=== PATIENT | female | born 1985 | race Caucasian/White ===

== ENCOUNTER 2018-05-18 14:26 | Inpatient (IN) | payer BC ==
[2018-05-18] MEDS ORDERED: Sodium Chloride 0.9% 1,000 ML IV STA (14:59)
[2018-05-18] MEDS ORDERED: Morphine 4 mg/ml ISec IVP STA (14:59)
--- NOTE | 2018-05-18 15:01 | ED PDOC ---
Arrival/HPI - General Chief Complaint: Abdominal Pain Time Seen by Provider: 05/18/18 14:35 Historian: Patient - History of Present Illness Narrative History of Present Illness (Text): 05/18/18 15:00 Patient is a 33 year old female whose past medical history includes pancreatitis , anemia, hypertension, ovarian cyst, irregular periods, and "intestinal obstruction", who presents to the emergency department complaining of upper abdominal pain, which started yesterday. Patient reports that yesterday at approximately 17:00 she started experiencing abdominal pain while walking. She also mentions having a reduced appetite because of a sensation that the food isn 't being digested. She states that in January 2017 she was hospitalized for pancreatitis and bowel obstruction. She notes that her current abdominal pain is similar to the pain she experienced from pancreatitis. Patient admits to increased belching but denies any flatulence, fevers, chills, cough, shortness of breath, chest pain, dyspnea on exertion, nausea, vomiting, diarrhea, back pain, neck pain, headache, dizziness, or any other complaint. Of note her last bowel movement was last night but notes it didn't feel complete. Of note patient denies any allergies to medications. Time/Duration: 24 hours Symptom Onset: Sudden Symptom Course: Unchanged Context: Walking Past Medical History - Provider Review Nursing Documentation Reviewed: Yes - Infectious Disease Hx of Infectious Diseases: None - Reproductive Menopause: No - Cardiac Hx Hypertension: Yes - Neurological Hx Neurological Disorder: No - Gastrointestinal Other/Comment: upper intestinal obstruction,ovarian cyst - Genitourinary/Gynecological Hx Genitourinary Disorders: No - Psychiatric Hx Anxiety: Yes Hx Substance Use: No - Anesthesia Hx Anesthesia: No Family/Social History - Physician Review Nursing Documentation Reviewed: Yes Family/Social History: No Known Family HX Smoking Status: Unknown If Ever Smoked Hx Alcohol Use: No Hx Substance Use: No Allergies/Home Meds Allergies/Adverse Reactions: Allergies No Known Allergies Allergy (Verified 05/18/18 14:49) Home Medications: Home Meds Medication Instructions Recorded Confirmed Folic Acid 0.8 mg PO DAILY 05/18/18 05/18/18 Lisinopril [Zestril] 20 mg PO DAILY 05/18/18 05/18/18 Zolpidem [Ambien] 5 mg PO PRN PRN 05/18/18 05/18/18 cloNIDine [clonidine HCl] 0.1 mg PO TID 05/18/18 05/18/18 hydrALAZINE [hydralazine 25 mg PO TID 05/18/18 05/18/18 Hydrochloride] Review of Systems - Physician Review All systems were reviewed & negative as marked: Yes - Review of Systems Constitutional: absent: Fevers Cardiovascular: absent: Chest Pain Physical Exam - Physical Exam Narrative Physical Exam (Text): 05/18/18 15:13 Constitutional: No acute distress. Head: Normocephalic. Atraumatic. Eyes: PERRL. ENT: Moist mucous membranes. Neck: Supple. Cardiovascular: Regular rate. Chest: No tenderness. Respiratory: Clear to auscultation bilaterally. GI: Soft. Nondistended. Epigastric tenderness. Back: No CVA tenderness. Musculoskeletal: No tenderness or swelling of extremities. Skin: No rash. Neurologic: Alert, no focal deficit. Vital Signs Reviewed: Yes Vital Signs Temp Pulse Resp BP Pulse Ox 05/18/18 20:08 89 179/112 H 05/18/18 16:28 88 16 152/96 H 98 05/18/18 14:35 98.1 F 92 H 18 167/107 H 99 Temperature: Afebrile Blood Pressure: Hypertensive Pulse: Regular Respiratory Rate: Normal Appearance: Positive for: Well-Appearing Mental Status: Positive for: Alert and Oriented X 3 Medical Decision Making ED Course and Treatment: 05/18/18 15:19 Impression: Patient is a 33 year old female who presents to the emergency department complaining of upper abdominal pain, which started yesterday. Differential Diagnosis included but are not limited to: Bowel obstruction vs. Pancreatitis vs. Gastritis Plan: --Abdomen and Pelvis CT with IV contrast --Labs --Morphine and Zofran --IV fluids --Urine culture --Urinalysis and HCG -- Reassess and disposition Progress Notes: 05/18/18 17:45 Discussed case with , who is aware and agrees to admit the patient under his service. 05/18/[address] with IV contrast: Creator : Frandy Heart MD IMPRESSION: Findings consistent with mild pancreatitis. No evidence of necrotizing pancreatitis. Hepatomegaly, hepatic steatosis. 05/18/18 EKG shows NSR at [address]/T wave changes. Interpreted by me. - Lab Interpretations Lab Results: 05/18/18 15:37 05/18/18 15:37 Lab Results 05/18/18 15:37: Iron 229 H, TIBC 344, % Saturation 67 H 05/18/18 15:37: Alcohol, Quantitative < 10 05/18/18 15:37: Lactate Dehydrogenase 611, Total Creatine Kinase 124, Troponin I < 0.01, Triglycerides 231 H, Cholesterol 263 H, LDL Cholesterol Direct 204 H, HDL Cholesterol 27 L 05/18/18 15:37: Sodium 142, Potassium 3.8, Chloride 100, Carbon Dioxide 28, Anion Gap 17, BUN 14, Creatinine 0.7, Est GFR ( Amer) > 60, Est GFR (Non- Af Amer) > 60, Random Glucose 123 H, Calcium 8.9, Total Bilirubin 1.1, AST 266 H , ALT 120 H, Alkaline Phosphatase 193 H, Total Protein 7.7, Albumin 4.0, Globulin 3.6, Albumin/Globulin Ratio 1.1, Lipase 5814 H 05/18/18 15:37: WBC 8.6, RBC 3.09 L, Hgb 9.9 L, Hct 30.2 L, MCV 97.7, MCH 32.0, MCHC 32.8, RDW 14.9 H, Plt Count 260, MPV 9.4, Gran % 75.7 H, Lymph % (Auto) 15.6 L, [place] % (Auto) 6.2 H, Eos % (Auto) 2.3, Baso % (Auto) 0.2, Gran # 6.48, Lymph # (Auto) 1.3, [place] # (Auto) 0.5, Eos # (Auto) 0.2, Baso # (Auto) 0.02 05/18/18 15:07: Urine Color Yellow, Urine Appearance Cloudy, Urine pH 6.5, Ur Specific [place] 1.020, Urine Protein 100 H, Urine Glucose (UA) Negative, Urine Ketones Trace H, Urine Blood Large H, Urine Nitrate Negative, Urine Bilirubin Small H, Urine Urobilinogen 1.0 H, Ur Leukocyte Esterase Trace H, Urine RBC Tntc , Urine WBC 10 - 15, Ur Epithelial Cells 10 - 12, Urine Bacteria Mod, Urine HCG , Qual Negative I have reviewed the lab results: Yes - RAD Interpretation Radiology Orders: 05/18/18 14:59 ABD & PELVIS IV CONTRAST ONLY [CT] [facility] Assistant: Radiologist - EKG Interpretation Interpreted by ED Physician: Yes Type: 12 lead EKG - Medication Orders Current Medication Orders: Clonidine HCl (Catapres) 0.1 mg PO TID [facility] Hydralazine HCl (Apresoline) 25 mg PO TID [facility] Lactated Ringer's (Lactated Ringer's) 1,000 mls @ 150 mls/hr IV .Q6H40M [facility] Lisinopril (Zestril) 20 mg PO DAILY [facility] Metoprolol Tartrate (Lopressor) 25 mg PO BID [facility] Morphine Sulfate (Morphine) 2 mg IVP Q4H PRN PRN Reason: Pain, severe (8-10) Last Admin: 05/18/18 20:11 Dose: 2 mg MAR Pain Assessment Document 05/18/18 20:11 (Rec: 05/18/18 20:11 [place] [id number]) Pain Reassessment Is this a pain reassessment? No Sleep Is patient sleeping during reassessment? No Presence of Pain Presence of Pain Yes IVP Administration Document 05/18/18 20:11 (Rec: 05/18/18 20:11 [place] [id number]) Charges for Administration # of IVP Administrations 1 Non-Formulary Medication (Folic Acid [Folic Acid]) 0.8 mg PO DAILY [facility] Pantoprazole Sodium (Protonix Ec Tab) 40 mg PO 0600 [facility] Discontinued Medications Clonidine HCl (Catapres) 0.1 mg PO STAT STA Stop: 05/18/18 19:35 Last Admin: 05/18/18 20:08 Dose: 0.1 mg MAR Pulse and Blood Pressure Document 05/18/18 20:08 (Rec: 05/18/18 20:08 [place] [id number]) Pulse Pulse Rate (60-90) 89 Blood Pressure Blood Pressure (100/60-150/90) 179/112 Fentanyl (Fentanyl) 100 mcg IVP ONCE ONE Stop: 05/18/18 16:11 Last Admin: 05/18/18 16:24 Dose: 100 mcg MAR Pain Assessment Document 05/18/18 16:24 ANGELICA (Rec: 05/18/18 16:24 [id number] Pain Reassessment Is this a pain reassessment? Yes Presence of Pain Presence of Pain Yes Location Upper or Lower Upper Pain Location Body Site Abdomen Description Description Sharp Intensity of Pain at present 10 IVP Administration Document 05/18/18 16:24 ANGELICA (Rec: 05/18/18 16:24 [facility]) Charges for Administration # of IVP Administrations 1 Fentanyl (Fentanyl) 100 mcg IVP ONCE ONE Stop: 05/18/18 17:51 Last Admin: 05/18/18 18:14 Dose: 100 mcg MAR Pain Assessment Document 05/18/18 18:14 [place] (Rec: 05/18/18 18:14 [id number] Pain Reassessment Is this a pain reassessment? Yes Sleep Is patient sleeping during reassessment? No Presence of Pain Presence of Pain Yes Pain Scale Used Pain Scale Used Numeric Description Description Sharp Intensity of Pain at present 10 Pain Behavior Moaning Facial Grimacing IVP Administration Document 05/18/18 18:14 [place] (Rec: 05/18/18 18:14 [id number]) Charges for Administration # of IVP Administrations 1 Sodium Chloride (Sodium Chloride 0.9%) 1,000 mls @ 999 mls/hr IV .Q1H1M STA Stop: 05/18/18 15:59 Last Admin: 05/18/18 15:24 Dose: 999 mls/hr eMAR Start Stop Document 05/18/18 15:24 ANGELICA (Rec: 05/18/18 15:24 [facility]) Intravenous Solution Start Date 05/18/18 Start Time 15:24 End Date 05/18/18 End time 16:24 Total Infusion Time 60 Morphine Sulfate (Morphine) 4 mg IVP STAT STA Stop: 05/18/18 15:00 Last Admin: 05/18/18 15:24 Dose: Not Given Non-Admin Reason: Patient Refused Ondansetron HCl (Zofran Inj) 8 mg IVP STAT STA Stop: 05/18/18 15:00 Last Admin: 05/18/18 15:24 Dose: 8 mg IVP Administration Document 05/18/18 15:24 ANGELICA (Rec: 05/18/18 15:24 [facility]) Charges for Administration # of IVP Administrations 1 - Scribe Statement The provider has reviewed the documentation as recorded by the Scribjoaquin Masters Provider Scribe Attestation: All medical record entries made by the Scribe were at my direction and personally dictated by me. I have reviewed the chart and agree that the record accurately reflects my personal performance of the history, physical exam, medical decision making, and the department course for this patient. I have also personally directed, reviewed, and agree with the discharge instructions and disposition. Disposition/Present on Arrival - Present on Arrival Any Indicators Present on Arrival: No History of DVT/PE: No History of Uncontrolled Diabetes: No Urinary Catheter: No History of Decub. Ulcer: No History Surgical Site Infection Following: None - Disposition Have Diagnosis and Disposition been Completed?: Yes Diagnosis: Acute pancreatitis Disposition: HOSPITALIZED Disposition Time: 17:30 Patient Plan: Admission Condition: GUARDED
[2018-05-18 15:19] LABS: PH,URINE 6.5 (4.7-8.0); URINE BILIRUBIN SMALL (NEGATIVE); URINE BLOOD LARGE (NEGATIVE); URINE GLUCOSE (UA) NEGATIVE (NEGATIVE); URINE LEUKOCYTE ESTERASE TRACE Leu/uL (NEGATIVE); URINE PROTEIN 100 mg/dL (<30 mg/dL)
[2018-05-18 15:26] LABS: HCG,QUALITATIVE URINE NEGATIVE (NEGATIVE); URINE APPEARANCE CLOUDY (CLEAR); URINE COLOR YELLOW (YELLOW)
[2018-05-18 15:38] LABS: URINE BACTERIA MOD (NEG); URINE RBC TNTC /hpf (0-2)
[2018-05-18 15:43] LABS: BASO # 0.02 K/mm3 (0.0-2.0); BASO % 0.2 % (0.0-3.0); EOS # 0.2 (0.0-0.7); EOS % 2.3 % (1.5-5.0); GRAN # 6.48 (1.4-6.5); GRAN % 75.7 % (50.0-68.0); HEMOGLOBIN 9.9 g/dL (12.0-16.0); LYMPH # 1.3 (1.2-3.4); LYMPH % 15.6 % (22.0-35.0); MEAN CELL VOLUME 97.7 fl (80.0-105.0); MEAN CORPUSCULAR HGB CONC 32.8 g/dl (31.0-37.0); MEAN PLATELET VOLUME 9.4 fl (7.0-11.0); MONO # 0.5 (0.1-0.6); MONO % 6.2 % (1.0-6.0); RBC 3.09 10^6/uL (3.5-6.1); RED CELL DISTRIBUTION WIDTH 14.9 % (11.5-14.5); WHITE BLOOD COUNT 8.6 10^3/ul (4.5-11.0)
[2018-05-18 15:53] LABS: ALB/GLOB RATIO 1.1 (1.1-1.8); ALT/SGPT 120 U/L (7-56); AST/SGOT 266 U/L (14-36); BLOOD UREA NITROGEN 14 mg/dL (7-21); CALCIUM 8.9 mg/dL (8.4-10.5); GFR AFRICAN-AMERICAN > 60; GFR NON-AFRICAN AMERICAN > 60
[2018-05-18] MEDS ORDERED: Iohexol 350 MG/100 ML VIAL ONE (16:14)
[2018-05-18 16:33] LABS: LIPASE 5814 U/L (23-300)
--- NOTE | 2018-05-18 17:27 | CT ---
PROCEDURE: CT Abdomen and Pelvis with contrast HISTORY: Abdominal pain and nausea. History of obstruction. Negative test (concurrent with this examination). COMPARISON: None. TECHNIQUE: Contrast dose: 96 cc Omnipaque 350. Radiation dose: Total exam DLP = 1154.27 mGy-cm. This CT exam was performed using one or more of the following dose reduction techniques: Automated exposure control, adjustment of the mA and/or kV according to patient size, and/or use of iterative reconstruction technique. FINDINGS: LOWER THORAX: Unremarkable. LIVER: Hepatomegaly, hepatic steatosis without focal liver abnormality. GALLBLADDER AND BILE DUCTS: Unremarkable. PANCREAS: Haziness about the head of the pancreas and peripancreatic inflammatory changes consistent with acute pancreatitis. No evidence of necrotizing pancreatitis. Inflammatory changes extend to root of the mesenteries, proximal loops of small bowel and lesser sac. SPLEEN: Unremarkable. ADRENALS: Unremarkable. No mass. KIDNEYS AND URETERS: Unremarkable. No hydronephrosis. No solid mass. VASCULATURE: Unremarkable. No aortic aneurysm. BOWEL: Unremarkable. No obstruction. No gross mural thickening. APPENDIX: Normal appendix. PERITONEUM: Unremarkable. No free fluid. No free air. LYMPH NODES: Unremarkable. No enlarged lymph nodes. BLADDER: Unremarkable. REPRODUCTIVE: Unremarkable. BONES: No acute fracture. OTHER FINDINGS: None. IMPRESSION: Findings consistent with mild pancreatitis. No evidence of necrotizing pancreatitis. Hepatomegaly, hepatic steatosis.
[2018-05-18 18:34] LABS: BARBITURATES, UR NEGATIVE (NEGATIVE); BENZODIAZEPINES, UR POSITIVE (NEGATIVE); OPIATES, UR NEGATIVE (NEGATIVE); PHENCYCLIDINE, UR NEGATIVE (NEGATIVE)
[2018-05-18 19:17] LABS: HDL CHOLESTEROL 27 mg/dL (29-60)
[2018-05-18 19:18] LABS: IRON 229 ug/dL (45-180)
[2018-05-18 19:28] LABS: % IRON SATURATION 67 % (20-55); LDL CHOLESTEROL 204 mg/dL (0-129); TOTAL IRON BINDING CAPACITY 344 ug/dL (265-497)
[2018-05-18 19:31] LABS: TROPONIN I < 0.01 ng/mL
--- NOTE | 2018-05-18 19:32 | CP.PCM.HP ---
<Saeed Jerry - Last Filed: 05/18/18 21:03> History of Present Illness - History of Present Illness History of Present Illness: Saeed Hsuguis PGY2 IM H&P Note for Hospitalist Service Ms. Jonas is a 33-year-old female the past medical history of one episode of pancreatitis (2012) secondary to alcohol use, and iron deficiency anemia who presents to ED with epigastric and right upper quadrant pain that began yesterday and is described as sharp in nature. Patient denies nausea/vomiting or fever/chills, changes in bowel habits, hematochezia or hematemesis. Patient states that she did not eat any new foods yesterday and admits to having only 1 alcoholic drink yesterday which she states was not large. Patient also denies chest pain, headaches, shortness of breath, changes in vision, weakness, dizziness, or leg pain. 12 point ROS was reviewed and is otherwise unremarkable. PMH: As above PSH: Unremarkable Meds: Lisinopril 20 mg daily, metoprolol 25 mg twice daily, clonidine 0.1 mg 3 times daily, hydralazine 25 mg 3 times daily, folic acid and iron supplements Allergies: No known drug allergies NKDA SHX: Denies excessive alcohol use, tobacco use or drug use FHx: Mom (recent cholecystectomy with complications), dad and other members of family have heart disease Present on Admission - Present on Admission Any Indicators Present on Admission: No Review of Systems - Review of Systems All systems: reviewed and no additional remarkable complaints except (as per HPI ) Past Patient History - Infectious Disease Hx of Infectious Diseases: None - Past Medical History & Family History Past Medical History?: Yes Past Family History: Reviewed and not pertinent - Past Social History Smoking Status: Unknown If Ever Smoked Alcohol: Occasional Drugs: Denies - CARDIAC Hx Hypertension: Yes - PULMONARY Hx Respiratory Disorders: No - NEUROLOGICAL Hx Neurological Disorder: No - HEENT Hx HEENT Problems: No - RENAL Hx Chronic Kidney Disease: No - ENDOCRINE/METABOLIC Hx Endocrine Disorders: No - HEMATOLOGICAL/ONCOLOGICAL Hx Anemia: Yes - INTEGUMENTARY Hx Dermatological Problems: No - MUSCULOSKELETAL/RHEUMATOLOGICAL Hx Musculoskeletal Disorders: No - GASTROINTESTINAL Hx Gastrointestinal Disorders: Yes Hx Pancreatitis: Yes Other/Comment: upper intestinal obstruction,ovarian cyst - GENITOURINARY/GYNECOLOGICAL Hx Genitourinary Disorders: No Other/Comment: ovarian cyst, menorrhagia - PSYCHIATRIC Hx Anxiety: Yes Hx Substance Use: No - SURGICAL HISTORY Hx Surgeries: No - ANESTHESIA Hx Anesthesia: No Meds Allergies/Adverse Reactions: Allergies Allergy/AdvReac Type Severity Reaction Status Date / Time No Known Allergies Allergy Verified 05/18/18 14:49 Physical Exam - Constitutional Appears: Well, Non-toxic, No Acute Distress - Head Exam Head Exam: NORMAL INSPECTION - Eye Exam Eye Exam: EOMI, Normal appearance - ENT Exam ENT Exam: Mucous Membranes Moist, Normal Exam - Neck Exam Neck exam: Positive for: Normal Inspection - Respiratory Exam Respiratory Exam: Clear to Auscultation Bilateral, NORMAL BREATHING PATTERN. absent: Rales, Rhonchi, Wheezes - Cardiovascular Exam Cardiovascular Exam: RRR, +S1, +S2 - GI/Abdominal Exam GI & Abdominal Exam: Normal Bowel Sounds, Soft, Tenderness (epigastric/RUQ). absent: Distended, Guarding, Rigid - Extremities Exam Extremities exam: Positive for: normal inspection - Back Exam Back exam: NORMAL INSPECTION. absent: CVA tenderness (L), CVA tenderness (R), tenderness - Neurological Exam Neurological exam: Alert, Oriented x3 - Psychiatric Exam Psychiatric exam: Anxious - Skin Skin Exam: Normal Color, Warm Results - Vital Signs Recent Vital Signs: Last Vital Signs Temp 98.1 F 05/18/18 14:35 Pulse 88 05/18/18 16:28 Resp 16 05/18/18 16:28 BP 152/96 H 05/18/18 16:28 Pulse Ox 98 05/18/18 16:28 - Labs Result Diagrams: 05/18/18 15:37 05/18/18 15:37 Labs: Laboratory Results - last 24 hr 05/18/18 17:57 Urine Opiates Screen Negative Urine Methadone Screen Negative Ur Barbiturates Screen Negative Ur Phencyclidine Scrn Negative Ur Amphetamines Screen Negative U Benzodiazepines Scrn Positive H U Oth Cocaine Metabols Negative U Cannabinoids Screen Negative Assessment & Plan - Assessment and Plan (Free Text) Assessment: 33 yo F with PMH of one episode of pancreatitis (2012) secondary to alcohol use , and iron deficiency anemia who presents to ED with epigastric and right upper quadrant pain, found to have pancreatitis (abdominal pain, findings on imaging and elevated lipase) and transaminitis. Plan: 1. Abdominal Pain 2/2 Pancreatitis - Abd US ordered to r/o gallstones as etiology - Lipid panel ordered to r/o triglycerides as etiology - ETOH level ordered to r/o ETOH as etiology - IVF w/ LR @ 150 - morphine prn pain - GI consulted given 2nd episode in young patient, recs appreciated - NPO diet except meds - troponin ordered to r/o MO in patient w/ +fhx, obese and htn 2. Hx HTN - home meds restarted - pharmacy not available at this time; please contact to [employer] on list - monitor VS - EKG ordered, f/u 3. Hx anemia - likely due to menorrhagia and recent menses - normocytic in nature - cont to monitor H/H - iron panel and w/u ordered - monitor for signs 4. Transaminitis - CT showed fatty liver - Abd US ordered - hepatitis panel ordered - avoid hepatotoxic meds 5. ppx - PTX - ambulatory Case was reviewed and discussed with attending, Dr. Jm Jerry PGY1 <Arlene Oneal - Last Filed: 05/19/18 08:10> Results - Vital Signs Recent Vital Signs: Last Vital Signs Temp 98.1 F 05/18/18 14:35 Pulse 92 H 05/19/18 07:00 Resp 18 05/18/18 22:52 BP 166/120 H 05/19/18 07:00 Pulse Ox 98 05/18/18 16:28 - Labs Result Diagrams: 05/19/18 06:00 05/19/18 07:05 Labs: Laboratory Results - last 24 hr 05/18/18 05/19/18 05/19/18 17:57 00:40 06:00 WBC RBC Hgb Hct MCV MCH MCHC RDW Plt Count MPV Gran % Lymph % (Auto) [place] % (Auto) Eos % (Auto) Baso % (Auto) Gran # Lymph # (Auto) [place] # (Auto) Eos # (Auto) Baso # (Auto) Sodium Potassium Chloride Carbon Dioxide Anion Gap BUN Creatinine Est GFR ( Amer) Est GFR (Non-Af Amer) Random Glucose Calcium Total Bilirubin AST ALT Alkaline Phosphatase Lactate Dehydrogenase 500 535 Total Creatine Kinase 94 100 Troponin I < 0.01 < 0.01 Total Protein Albumin Globulin Albumin/Globulin Ratio Urine Opiates Screen Negative Urine Methadone Screen Negative Ur Barbiturates Screen Negative Ur Phencyclidine Scrn Negative Ur Amphetamines Screen Negative U Benzodiazepines Scrn Positive H U Oth Cocaine Metabols Negative U Cannabinoids Screen Negative 05/19/18 05/19/18 06:00 07:05 WBC 7.0 RBC 2.91 L Hgb 9.4 L Hct 28.4 L MCV 97.6 MCH 32.3 MCHC 33.1 RDW 14.9 H Plt Count 243 MPV 9.7 Gran % 70.6 H Lymph % (Auto) 18.7 L [place] % (Auto) 6.8 H Eos % (Auto) 3.6 Baso % (Auto) 0.3 Gran # 4.95 Lymph # (Auto) 1.3 [place] # (Auto) 0.5 Eos # (Auto) 0.3 Baso # (Auto) 0.02 Sodium 142 Potassium 3.8 Chloride 101 Carbon Dioxide 28 Anion Gap 16 BUN 8 Creatinine 0.6 L Est GFR ( Amer) > 60 Est GFR (Non-Af Amer) > 60 Random Glucose 114 H Calcium 8.3 L Total Bilirubin 1.0 AST 194 H D ALT 104 H Alkaline Phosphatase 169 H Lactate Dehydrogenase Total Creatine Kinase Troponin I Total Protein 7.4 Albumin 3.6 Globulin 3.8 Albumin/Globulin Ratio 1.0 L Urine Opiates Screen Urine Methadone Screen Ur Barbiturates Screen Ur Phencyclidine Scrn Ur Amphetamines Screen U Benzodiazepines Scrn U Oth Cocaine Metabols U Cannabinoids Screen Attending/Attestation - Attestation I have personally seen and examined this patient.: Yes I have fully participated in the care of the patient.: Yes I have reviewed all pertinent clinical information: Yes Notes (Text): 05/18/18 33 year old female with past medical history of alcohol abuse, anemia and pancreatitis presents with complaint of abdominal pain secondary to acute pancreatitis. Elevated lipase and LFTs on labs. CT abd/pelvis shows mild pancreatitis without gallstones. Will keep NPO with IVF and analgesics. Lipid panel and hepatitis panel is ordered. Will obtain urine drug screen and alcohol level. Patient states she cut down on her ETOH intake since her last pancreatitis episode and had only one drink yesterday. She was counselled on alcohol abstinence. US ultrasound is ordered. GI evaluation is requested. Serial cardiac enzymes were also ordered. EKG is pending. Arlene Oneal MD Hospitalist.
[2018-05-18] MEDS: Morphine 2 mg/ml ISec IVP PRN (20:11)
[2018-05-18] MEDS ORDERED: Morphine 2 mg/ml ISec IVP STA (23:03)
[2018-05-19 00:34] VITALS: BMI 32.1
[2018-05-19 01:18] LABS: TROPONIN I < 0.01 ng/mL
[2018-05-19] MEDS: Lactated Ringer's 1,000 ML IV SCH ×5 (02:28→22:18)
[2018-05-19] MEDS: Morphine 2 mg/ml ISec IVP PRN ×6 (03:33→23:34)
[2018-05-19] MEDS: Pantoprazole 40 mg EC Tab PO SCH (06:07)
[2018-05-19 06:46] LABS: TROPONIN I < 0.01 ng/mL
[2018-05-19] MEDS ORDERED: Sodium Chloride 0.9% 1,000 ML IV SCH ×2 (07:15→09:25)
[2018-05-19 07:26] LABS: BASO # 0.02 K/mm3 (0.0-2.0); BASO % 0.3 % (0.0-3.0); EOS # 0.3 (0.0-0.7); EOS % 3.6 % (1.5-5.0); GRAN # 4.95 (1.4-6.5); GRAN % 70.6 % (50.0-68.0); HEMOGLOBIN 9.4 g/dL (12.0-16.0); LYMPH # 1.3 (1.2-3.4); LYMPH % 18.7 % (22.0-35.0); MEAN CELL VOLUME 97.6 fl (80.0-105.0); MEAN CORPUSCULAR HEMOGLOBIN 32.3 pg (25.0-35.0); MEAN CORPUSCULAR HGB CONC 33.1 g/dl (31.0-37.0); MEAN PLATELET VOLUME 9.7 fl (7.0-11.0); MONO # 0.5 (0.1-0.6); MONO % 6.8 % (1.0-6.0); RBC 2.91 10^6/uL (3.5-6.1); RED CELL DISTRIBUTION WIDTH 14.9 % (11.5-14.5)
[2018-05-19 07:37] LABS: ALBUMIN 3.6 g/dL (3.0-4.8); ALT/SGPT 104 U/L (7-56); AST/SGOT 194 U/L (14-36); BLOOD UREA NITROGEN 8 mg/dL (7-21); CALCIUM 8.3 mg/dL (8.4-10.5); GFR AFRICAN-AMERICAN > 60; GFR NON-AFRICAN AMERICAN > 60
--- NOTE | 2018-05-19 09:34 | US ---
HISTORY: r/o cholelithiasis COMPARISON: None. TECHNIQUE: Sonographic evaluation of the abdomen. FINDINGS: LIVER: Measures 25.2 cm. There is diffuse increased echogenicity of the liver parenchyma. No mass. No intrahepatic bile duct dilatation. GALLBLADDER: There are no gallstones, wall thickening or pericholecystic fluid. The sonographic Roberts's sign is negative. COMMON BILE DUCT: Measures 6.0 mm. No stones. Mild dilatation. PANCREAS: Not well-visualized. RIGHT KIDNEY: Measures 13.0cm. Normal echogenicity. No calculus, mass, or hydronephrosis. LEFT KIDNEY: Measures 13.3cm. Normal echogenicity. No calculus, mass, or hydronephrosis. SPLEEN: Enlarged and measures 14.0 cm. AORTA: No aneurysmal dilatation. IVC: Unremarkable. OTHER FINDINGS: None. IMPRESSION: No cholelithiasis. Mild diffuse dilatation of common bile duct without evidence for choledocholithiasis. Moderate hepatomegaly. Diffuse increased echogenicity in the liver may reflect hepatic steatosis however parenchymal infectious/ inflammatory etiologies cannot be entirely excluded. Clinical and laboratory correlation is advised. Mild splenomegaly.
[2018-05-19] MEDS ORDERED: FOLIC ACID 0.8 MG PO SCH (10:00)
[2018-05-19] MEDS ORDERED: Lactated Ringer's 1,000 ML IV SCH (10:00)
[2018-05-19 11:37] LABS: HEPATITIS B SURFACE AG Negative (NEGATIVE)
[2018-05-19 11:40] LABS: FERRITIN 73.7 ng/mL
[2018-05-19 11:42] LABS: HEPATITIS A IGM NEGATIVE (NEGATIVE); HEPATITIS B CORE AB NEGATIVE (NEGATIVE)
[2018-05-19 11:54] LABS: HEPATITIS C ANTIBODY NEGATIVE (NEGATIVE)
[2018-05-19 12:10] LABS: FOLATE > 20.0 ng/mL
--- NOTE | 2018-05-19 12:50 | CARD ---
APPROVED REPORT EKG Measurement Heart [id number] DC [id number] <Conclusion> Normal sinus rhythm Normal ECG
--- NOTE | 2018-05-19 14:07 | CP.PCM.CON ---
<Medardo Alex - Last Filed: 05/19/18 15:43> History of Present Illness - History of Present Illness History of Present Illness: PGY-4 GI Fellow Consult Note Mrs. Jonas is a 33 yo BF with h/o pancreatitis (attributed to EtOH, previously worked up in 2013 @ [facility]) presenting with abdominal pain. She states in the last day or two she noticed abrupt onset sharp, RUQ/epigatric pain that would radiated to her sides. She denies any N/V, F/C, hematemesis, melena nor hematochezia. States she had one larger [employer] day that day the symptoms started. Otherwise she states that she does not drink hardly ever and does not do any drugs. 12 point ROS negative other than stated above MHx Pancreatitis as desribed above SurgHx: None Meds Lisinopril Metoprolol Clonidine Hydralazine Folic Chris, Fe Supp FamHx Mother with GB disease and heart problems SocHx: Rarely drinks EtOH, denies tob and illicits All: NKDA Past Patient History - Infectious Disease Hx of Infectious Diseases: None - Past Medical History & Family History Past Medical History?: Yes Past Family History: Reviewed and not pertinent - Past Social History Smoking Status: Former Smoker - CARDIAC Hx Cardiac Disorders: Yes Hx Hypertension: Yes - PULMONARY Hx Respiratory Disorders: No - NEUROLOGICAL Hx Neurological Disorder: No - HEENT Hx HEENT Problems: No - RENAL Hx Chronic Kidney Disease: No - ENDOCRINE/METABOLIC Hx Endocrine Disorders: No - HEMATOLOGICAL/ONCOLOGICAL Hx Blood Disorders: Yes Hx Anemia: Yes - INTEGUMENTARY Hx Dermatological Problems: No - MUSCULOSKELETAL/RHEUMATOLOGICAL Hx Musculoskeletal Disorders: No Hx Falls: No - GASTROINTESTINAL Hx Pancreatitis: Yes Other/Comment: upper intestinal obstruction,ovarian cyst - GENITOURINARY/GYNECOLOGICAL Hx Genitourinary Disorders: No - PSYCHIATRIC Hx Anxiety: Yes Hx Substance Use: No - SURGICAL HISTORY Hx Surgeries: No - ANESTHESIA Hx Anesthesia: No Meds Home Medications: Home Medication List Medication Instructions Recorded Confirmed Type ALPRAZolam [Xanax] 1 mg PO BID #8 tab 05/19/18 Rx Allergies/Adverse Reactions: Allergies Allergy/AdvReac Type Severity Reaction Status Date / Time No Known Allergies Allergy Verified 05/18/18 14:49 - Medications Medications: Current Medications Clonidine HCl (Catapres) 0.1 mg PO TID [facility] Last Admin: 05/19/18 13:21 Dose: 0.1 mg Folic Acid (Folic Acid) 1 mg PO DAILY [facility] Last Admin: 05/19/18 09:35 Dose: 1 mg Hydralazine HCl (Apresoline) 25 mg PO TID [facility] Last Admin: 05/19/18 13:21 Dose: 25 mg Hydralazine HCl (Apresoline) 25 mg PO BID PRN PRN Reason: Systolic Blood Pressure Lactated Ringer's (Lactated Ringer's) 1,000 mls @ 125 mls/hr IV .Q8H [facility] Lisinopril (Zestril) 20 mg PO DAILY [facility] Last Admin: 05/19/18 10:46 Dose: 20 mg Metoprolol Tartrate (Lopressor) 50 mg PO BID [facility] Morphine Sulfate (Morphine) 2 mg IVP Q4H PRN PRN Reason: Pain, severe (8-10) Last Admin: 05/19/18 11:46 Dose: 2 mg Pantoprazole Sodium (Protonix Ec Tab) 40 mg PO 0600 [facility] Last Admin: 05/19/18 06:07 Dose: 40 mg Physical Exam - Constitutional Appears: Non-toxic, Other (Uncomfortable, Anxious, Obese) - Head Exam Head Exam: ATRAUMATIC, NORMOCEPHALIC - Eye Exam Eye Exam: EOMI. absent: Conjunctival injection, Scleral icterus - ENT Exam ENT Exam: Mucous Membranes Moist, Normal External Ear Exam - Respiratory Exam Respiratory Exam: Clear to Auscultation Bilateral. absent: Accessory Muscle Use , Prolonged Expiratory Phase, Respiratory Distress - Cardiovascular Exam Cardiovascular Exam: REGULAR RHYTHM. absent: Systolic Murmur - GI/Abdominal Exam GI & Abdominal Exam: Normal Bowel Sounds, Soft, Tenderness (ttp in epigastrum w/ o guarding). absent: Bruit, Diminished Bowel Sounds, Distended, Firm, Guarding , Hernia, Hyperactive Bowel Sounds, Hypoactive Bowel Sounds, Mass - Rectal Exam Rectal Exam: Deferred - Neurological Exam Neurological exam: Alert, CN II-XII Intact - Psychiatric Exam Psychiatric exam: Anxious, Normal Affect - Skin Skin Exam: Intact, Warm Results - Vital Signs Recent Vital Signs: Last Vital Signs Temp 98.1 F 05/19/18 08:11 Pulse 81 05/19/18 13:21 Resp 19 05/19/18 08:11 BP 161/114 H 05/19/18 13:21 Pulse Ox 97 05/19/18 08:11 - Labs Result Diagrams: 05/19/18 06:00 05/19/18 07:05 Labs: Laboratory Results - last 24 hr 05/18/18 05/18/18 05/18/18 17:57 19:42 19:42 WBC RBC Hgb Hct MCV MCH MCHC RDW Plt Count MPV Gran % Lymph % (Auto) [place] % (Auto) Eos % (Auto) Baso % (Auto) Gran # Lymph # (Auto) [place] # (Auto) Eos # (Auto) Baso # (Auto) Sodium Potassium Chloride Carbon Dioxide Anion Gap BUN Creatinine Est GFR ( Amer) Est GFR (Non-Af Amer) Random Glucose Calcium Ferritin 73.7 Total Bilirubin AST ALT Alkaline Phosphatase Lactate Dehydrogenase Total Creatine Kinase Troponin I Total Protein Albumin Globulin Albumin/Globulin Ratio Vitamin B12 400 Folate > 20.0 Urine Opiates Screen Negative Urine Methadone Screen Negative Ur Barbiturates Screen Negative Ur Phencyclidine Scrn Negative Ur Amphetamines Screen Negative U Benzodiazepines Scrn Positive H U Oth Cocaine Metabols Negative U Cannabinoids Screen Negative Hepatitis A IgM Ab Negative Hep Bs Antigen Negative Hep B Core IgM Ab Negative Hepatitis C Antibody Negative 05/19/18 05/19/18 05/19/18 00:40 06:00 06:00 WBC 7.0 RBC 2.91 L Hgb 9.4 L Hct 28.4 L MCV 97.6 MCH 32.3 MCHC 33.1 RDW 14.9 H Plt Count 243 MPV 9.7 Gran % 70.6 H Lymph % (Auto) 18.7 L [place] % (Auto) 6.8 H Eos % (Auto) 3.6 Baso % (Auto) 0.3 Gran # 4.95 Lymph # (Auto) 1.3 [place] # (Auto) 0.5 Eos # (Auto) 0.3 Baso # (Auto) 0.02 Sodium Potassium Chloride Carbon Dioxide Anion Gap BUN Creatinine Est GFR ( Amer) Est GFR (Non-Af Amer) Random Glucose Calcium Ferritin Total Bilirubin AST ALT Alkaline Phosphatase Lactate Dehydrogenase 500 535 Total Creatine Kinase 94 100 Troponin I < 0.01 < 0.01 Total Protein Albumin Globulin Albumin/Globulin Ratio Vitamin B12 Folate Urine Opiates Screen Urine Methadone Screen Ur Barbiturates Screen Ur Phencyclidine Scrn Ur Amphetamines Screen U Benzodiazepines Scrn U Oth Cocaine Metabols U Cannabinoids Screen Hepatitis A IgM Ab Hep Bs Antigen Hep B Core IgM Ab Hepatitis C Antibody 05/19/18 07:05 WBC RBC Hgb Hct MCV MCH MCHC RDW Plt Count MPV Gran % Lymph % (Auto) [place] % (Auto) Eos % (Auto) Baso % (Auto) Gran # Lymph # (Auto) [place] # (Auto) Eos # (Auto) Baso # (Auto) Sodium 142 Potassium 3.8 Chloride 101 Carbon Dioxide 28 Anion Gap 16 BUN 8 Creatinine 0.6 L Est GFR ( Amer) > 60 Est GFR (Non-Af Amer) > 60 Random Glucose 114 H Calcium 8.3 L Ferritin Total Bilirubin 1.0 AST 194 H D ALT 104 H Alkaline Phosphatase 169 H Lactate Dehydrogenase Total Creatine Kinase Troponin I Total Protein 7.4 Albumin 3.6 Globulin 3.8 Albumin/Globulin Ratio 1.0 L Vitamin B12 Folate Urine Opiates Screen Urine Methadone Screen Ur Barbiturates Screen Ur Phencyclidine Scrn Ur Amphetamines Screen U Benzodiazepines Scrn U Oth Cocaine Metabols U Cannabinoids Screen Hepatitis A IgM Ab Hep Bs Antigen Hep B Core IgM Ab Hepatitis C Antibody Assessment & Plan - Assessment and Plan (Free Text) Assessment: Acute Pancreatitis: 3/3 criteria with typical symptoms, lipase >3x ULN and radiographic imaging. Trigger likely related to EtOH as recent consumption with onset of symptoms. Though pt denied large consumption, some patients, especially females, can be sensitive to EtOH that could produced pancreatitis and hepatitis. Furthermore, patient can always be under reporting consumption habits (she reported drinking just prior to admission to medicine team, but told this author that she drank 3 weeks ago and none since when her mother was present). TGs not significantly elevate to be TG-induced. Acute Hepatitis: Likely EtOH induced given pattern AST/ALT and as well as correlating radiographic studies and concomitant pancreatitis. Plan: NPO Agressive IVF with Lactated Ringers Pain Control Agree with ruling out Viral Hep for elevated transaminases Counseled patient on complete EtOH cessation - Date & Time Date: 05/19/18 Time: 11:00 <James Renee V - Last Filed: 05/19/18 23:13> Meds - Medications Medications: Current Medications Alprazolam (Xanax) 1 mg PO BID PRN; Protocol PRN Reason: Anxiety Last Admin: 05/19/18 22:19 Dose: 1 mg Clonidine HCl (Catapres) 0.1 mg PO TID [facility] Last Admin: 05/19/18 17:44 Dose: 0.1 mg Folic Acid (Folic Acid) 1 mg PO DAILY [facility] Last Admin: 05/19/18 09:35 Dose: 1 mg Hydralazine HCl (Apresoline) 25 mg PO TID [facility] Last Admin: 05/19/18 17:44 Dose: 25 mg Hydralazine HCl (Apresoline) 25 mg PO BID PRN PRN Reason: Systolic Blood Pressure Lactated Ringer's (Lactated Ringer's) 1,000 mls @ 125 mls/hr IV .Q8H [facility] Last Admin: 05/19/18 22:18 Dose: 125 mls/hr Lisinopril (Zestril) 20 mg PO DAILY [facility] Last Admin: 05/19/18 10:46 Dose: 20 mg Metoprolol Tartrate (Lopressor) 50 mg PO BID [facility] Last Admin: 05/19/18 17:44 Dose: 50 mg Morphine Sulfate (Morphine) 2 mg IVP Q4H PRN PRN Reason: Pain, severe (8-10) Last Admin: 05/19/18 20:04 Dose: 2 mg Pantoprazole Sodium (Protonix Ec Tab) 40 mg PO 0600 [facility] Last Admin: 05/19/18 06:07 Dose: 40 mg Zolpidem Tartrate (Ambien) 5 mg PO HS PRN; Protocol PRN Reason: Insomnia Last Admin: 05/19/18 21:44 Dose: 5 mg Results - Vital Signs Recent Vital Signs: Last Vital Signs Temp 99.6 F 05/19/18 18:00 Pulse 84 05/19/18 18:00 Resp 19 05/19/18 18:00 BP 147/100 H 05/19/18 18:00 Pulse Ox 96 05/19/18 18:00 - Labs Result Diagrams: 05/19/18 06:00 05/19/18 07:05 Labs: Laboratory Results - last 24 hr 05/18/18 05/18/18 05/19/18 19:42 19:42 00:40 WBC RBC Hgb Hct MCV MCH MCHC RDW Plt Count MPV Gran % Lymph % (Auto) [place] % (Auto) Eos % (Auto) Baso % (Auto) Gran # Lymph # (Auto) [place] # (Auto) Eos # (Auto) Baso # (Auto) Sodium Potassium Chloride Carbon Dioxide Anion Gap BUN Creatinine Est GFR ( Amer) Est GFR (Non-Af Amer) Random Glucose Calcium Ferritin 73.7 Total Bilirubin AST ALT Alkaline Phosphatase Lactate Dehydrogenase 500 Total Creatine Kinase 94 Troponin I < 0.01 Total Protein Albumin Globulin Albumin/Globulin Ratio Vitamin B12 400 Folate > 20.0 Hepatitis A IgM Ab Negative Hep Bs Antigen Negative Hep B Core IgM Ab Negative Hepatitis C Antibody Negative 05/19/18 05/19/18 05/19/18 06:00 06:00 07:05 WBC 7.0 RBC 2.91 L Hgb 9.4 L Hct 28.4 L MCV 97.6 MCH 32.3 MCHC 33.1 RDW 14.9 H Plt Count 243 MPV 9.7 Gran % 70.6 H Lymph % (Auto) 18.7 L [place] % (Auto) 6.8 H Eos % (Auto) 3.6 Baso % (Auto) 0.3 Gran # 4.95 Lymph # (Auto) 1.3 [place] # (Auto) 0.5 Eos # (Auto) 0.3 Baso # (Auto) 0.02 Sodium 142 Potassium 3.8 Chloride 101 Carbon Dioxide 28 Anion Gap 16 BUN 8 Creatinine 0.6 L Est GFR ( Amer) > 60 Est GFR (Non-Af Amer) > 60 Random Glucose 114 H Calcium 8.3 L Ferritin Total Bilirubin 1.0 AST 194 H D ALT 104 H Alkaline Phosphatase 169 H Lactate Dehydrogenase 535 Total Creatine Kinase 100 Troponin I < 0.01 Total Protein 7.4 Albumin 3.6 Globulin 3.8 Albumin/Globulin Ratio 1.0 L Vitamin B12 Folate Hepatitis A IgM Ab Hep Bs Antigen Hep B Core IgM Ab Hepatitis C Antibody Attending/Attestation - Attestation I have personally seen and examined this patient.: Yes I have fully participated in the care of the patient.: Yes I have reviewed all pertinent clinical information: Yes Notes (Text): frances 05/19/18 23:13
--- NOTE | 2018-05-19 14:15 | CP.PCM.PN ---
<Hank Blas - Last Filed: 05/20/18 00:16> Subjective - Date & Time of Evaluation Date of Evaluation: 05/19/18 Time of Evaluation: 14:15 - Subjective Subjective: Pt was seen this AM at bedside; Nursing reported episodes of elevated BP overnight and throughout day however, patient remained hemodynamically stable without any symptoms of chest pain, sob, bv, gomez, and dizziness. During day patient also had c/o chest tightness, palpitations, and anxiety like symptoms; Pt's PMD Dr. Vega Santos office called to verify home xanax prescrition. At time of evaluation, pt was voicing complaints of abdominal pain located mid epigastric radiating in band like pattern; however stated that pain was resolving. She denied any fever/ chills overnight. She continued to have decreased appetite and is having complaints of indigestion / gas as well. Objective - Vital Signs/Intake and Output Vital Signs (last 24 hours): Temp Pulse Resp BP Pulse Ox 98.1 F 81 19 161/114 H 97 05/19/18 08:11 05/19/18 13:21 05/19/18 08:11 05/19/18 13:21 05/19/18 08:11 Intake and Output: 05/19/18 05/19/18 06:59 18:59 Intake Total 0 Output Total 1 Balance -1 - Medications Medications: Current Medications Alprazolam (Xanax) 1 mg PO BID [facility] PRN Reason: Protocol Clonidine HCl (Catapres) 0.1 mg PO TID [facility] Last Admin: 05/19/18 13:21 Dose: 0.1 mg Folic Acid (Folic Acid) 1 mg PO DAILY [facility] Last Admin: 05/19/18 09:35 Dose: 1 mg Hydralazine HCl (Apresoline) 25 mg PO TID [facility] Last Admin: 05/19/18 13:21 Dose: 25 mg Hydralazine HCl (Apresoline) 25 mg PO BID PRN PRN Reason: Systolic Blood Pressure Lactated Ringer's (Lactated Ringer's) 1,000 mls @ 125 mls/hr IV .Q8H [facility] Lisinopril (Zestril) 20 mg PO DAILY [facility] Last Admin: 05/19/18 10:46 Dose: 20 mg Metoprolol Tartrate (Lopressor) 50 mg PO BID [facility] Morphine Sulfate (Morphine) 2 mg IVP Q4H PRN PRN Reason: Pain, severe (8-10) Last Admin: 05/19/18 11:46 Dose: 2 mg Pantoprazole Sodium (Protonix Ec Tab) 40 mg PO 0600 [facility] Last Admin: 05/19/18 06:07 Dose: 40 mg - Labs Labs: 05/19/18 06:00 05/19/18 07:05 - Constitutional Appears: Non-toxic, In Acute Distress (Mild) - Head Exam Head Exam: ATRAUMATIC, NORMOCEPHALIC - Eye Exam Eye Exam: EOMI. absent: Scleral icterus - ENT Exam ENT Exam: Mucous Membranes Moist, Normal Exam - Respiratory Exam Respiratory Exam: Clear to Ausculation Bilateral, NORMAL BREATHING PATTERN. absent: Rhonchi, Wheezes, Respiratory Distress - Cardiovascular Exam Cardiovascular Exam: REGULAR RHYTHM, RRR, +S1, +S2. absent: Murmur - GI/Abdominal Exam Additional comments: Voluntary guarding during abdominal exam; bowel sounds present in all four quadrants; epigastric tenderness to palpation; exam could not be fully completed due to tenderness - Extremities Exam Extremities Exam: absent: Pedal Edema Additional comments: 2+ DP/TP BL - Neurological Exam Neurological Exam: Alert, Awake, Oriented x3 Assessment and Plan - Assessment and Plan (Free Text) Assessment: 33F w/ PMH EtOH abuse, anemia, and pancreatitis; presented to [facility] ED w/ CC of abd pain 2/2 acute pancreatitis meeting 3/3 dx criteria by lipase, CTAP and clinical features. U/S abdomen showed mild dilation of CBD w/ocholelithiasis. AST/ALT patterns suggestive of EtOH pancreatitis and hepatitis. Pt reports some improvement in symptoms at this time however condition is still guarded. HTN remains elevated despite resuming home therapy likely 2/2 pain/ discomfort. [place] keep pt. NPO, hydrate w/ aggressive IVF/LR, and Pain control. Plan: Abd Pain ML 2/2 Pancreatitis however r/o cholecystitis, acute hepatitis Lipase 5814; AST:ALT 266/120 on admission 05/19 AST:ALT 194/104 Trig 231; Cholest 263; LDL 204; HDL 27 CTAP - Mild pancreatitis w/o nec pancreatis U/S Abd - mild CBD dilation w/o choledocholithiasis; echogenicity in liver - hepatic steatosis vs infectious/ inflammatory etiology Hepatitis Panel negative Cont w/ NPO IVF/LR - @125/hr Pain Control - Morphine 2mg Q4 GI Consulted appreciate recs Hx HTN - pressures high throughout day - On home regime: Clonidine TID, hydralazine TID, Metoprolol dose inc 25->50 BID - Hydralazine PRN on board - Pt hemodynamically stable - monitor VS - EKG pending - Trops negative x3 Hx anemia - VSS; hemodynamically stable - normocytic in nature - cont to monitor H/H - iron panel: elevated iron; TIBC wnl Firritin wnl - Folate/ B12 wnl - Continue to monitor for signs of hemodynamic compromise Transaminitis - 05/18 AST/ALT: 266 // 120 - 05/19 AST/ALT: 194 // 10 - CT showed fatty liver - Abd US showed hepatic steatosis vs infectious/inflammatory etiology - hepatitis panel NEGATIVE - avoid hepatotoxic meds - Pt. to be counseled on EtOH abuse Hx Anxiety resume home Xanax 1mg BID PROPHYLAXIS: SCD/ Protonix DIET: NPO DISPO: Pt medically unstable for DC at this time; Pt is to follow up w/ PMD Dr. Vega Santos once discharged Case discussed w/ attending Dr. Jm Blas DO - PGY1 IM RESIDENT - PAGER [phone] <Arlene Oneal - Last Filed: 05/20/18 07:09> Objective - Vital Signs/Intake and Output Vital Signs (last 24 hours): Temp Pulse Resp BP Pulse Ox 99.6 F 81 19 170/100 H 96 05/19/18 18:00 05/20/18 06:23 05/19/18 18:00 05/20/18 06:23 05/19/18 18:00 Intake and Output: 05/20/18 05/20/18 06:59 18:59 Intake Total 3480 Output Total 200 Balance 3280 - Medications Medications: Current Medications Alprazolam (Xanax) 1 mg PO BID PRN; Protocol PRN Reason: Anxiety Last Admin: 05/19/18 22:19 Dose: 1 mg Clonidine HCl (Catapres) 0.1 mg PO TID [facility] Last Admin: 05/19/18 17:44 Dose: 0.1 mg Folic Acid (Folic Acid) 1 mg PO DAILY [facility] Last Admin: 05/19/18 09:35 Dose: 1 mg Hydralazine HCl (Apresoline) 25 mg PO BID PRN PRN Reason: Systolic Blood Pressure Last Admin: 05/20/18 06:23 Dose: 25 mg Hydralazine HCl (Apresoline) 25 mg PO QID [facility] Lactated Ringer's (Lactated Ringer's) 1,000 mls @ 125 mls/hr IV .Q8H [facility] Last Admin: 05/20/18 04:49 Dose: Not Given Lisinopril (Zestril) 20 mg PO DAILY [facility] Last Admin: 05/19/18 10:46 Dose: 20 mg Metoprolol Tartrate (Lopressor) 100 mg PO BID [facility] Morphine Sulfate (Morphine) 2 mg IVP Q4H PRN PRN Reason: Pain, severe (8-10) Last Admin: 05/20/18 04:59 Dose: 2 mg Pantoprazole Sodium (Protonix Ec Tab) 40 mg PO 0600 [facility] Last Admin: 05/20/18 04:59 Dose: 40 mg Zolpidem Tartrate (Ambien) 5 mg PO HS PRN; Protocol PRN Reason: Insomnia Last Admin: 05/19/18 21:44 Dose: 5 mg - Labs Labs: 05/19/18 06:00 05/19/18 07:05 Attending/Attestation - Attestation I have personally seen and examined this patient.: Yes I have fully participated in the care of the patient.: Yes I have reviewed all pertinent clinical information, including history, physical exam and plan: Yes Notes (Text): 05/19/18 33 year old female with past medical history of alcohol abuse, anemia and pancreatitis presented with complaint of abdominal pain secondary to acute pancreatitis. Elevated lipase and LFTs on labs. CT abd/pelvis showed mild pancreatitis without gallstones. She is NPO with IVF and analgesics. Lipid panel was reviewed. Hepatitis panel is negative. LFTs are slowly improving. GI evaluation was appreciated. She was counselled on alcohol abstinence. BP medications were resumed and metoprolol was increased for hypertension. Arlene Oneal MD Hospitalist.
[2018-05-20] MEDS ORDERED: HYDROmorphone 0.5 mg/0.5 ml ISec IVP ONE ×2 (02:16→21:53)
[2018-05-20] MEDS: Lactated Ringer's 1,000 ML IV SCH (04:49)
[2018-05-20] MEDS: Morphine 2 mg/ml ISec IVP PRN (04:59)
[2018-05-20] MEDS: Pantoprazole 40 mg EC Tab PO SCH (04:59)
[2018-05-20] MEDS: Morphine 4 mg/ml ISec IVP PRN ×3 (08:27→18:12)
[2018-05-20 08:42] LABS: BASO # 0.02 K/mm3 (0.0-2.0); BASO % 0.2 % (0.0-3.0); EOS # 0.2 (0.0-0.7); EOS % 1.7 % (1.5-5.0); GRAN # 7.62 (1.4-6.5); GRAN % 80.2 % (50.0-68.0); LYMPH # 1.2 (1.2-3.4); LYMPH % 12.7 % (22.0-35.0); MEAN CELL VOLUME 97.1 fl (80.0-105.0); MEAN CORPUSCULAR HEMOGLOBIN 32.3 pg (25.0-35.0); MEAN CORPUSCULAR HGB CONC 33.2 g/dl (31.0-37.0); MEAN PLATELET VOLUME 9.3 fl (7.0-11.0); MONO # 0.5 (0.1-0.6); MONO % 5.2 % (1.0-6.0); RBC 3.1 10^6/uL (3.5-6.1); RED CELL DISTRIBUTION WIDTH 14.8 % (11.5-14.5); WHITE BLOOD COUNT 9.5 10^3/ul (4.5-11.0)
[2018-05-20 09:21] LABS: ALB/GLOB RATIO 1.1 (1.1-1.8); ALT/SGPT 86 U/L (7-56); AST/SGOT 172 U/L (14-36); BLOOD UREA NITROGEN 4 mg/dL (7-21); CALCIUM 8.4 mg/dL (8.4-10.5); GFR AFRICAN-AMERICAN > 60; GFR NON-AFRICAN AMERICAN > 60
[2018-05-20 09:24] LABS: TROPONIN I < 0.01 ng/mL
[2018-05-20] MEDS ORDERED: EnalaprilAT 1.25 mg/ml Inj IVP STA (10:16)
[2018-05-20] MEDS ORDERED: HYDROmorphone 0.5 mg/0.5 ml ISec IVP STA (10:34)
[2018-05-20] MEDS ORDERED: Lactated Ringer's 1,000 ML IV SCH ×2 (10:44→16:20)
--- NOTE | 2018-05-20 14:42 | CARD ---
APPROVED REPORT EKG Measurement Heart [id number] [place] [id number] [id number] <Conclusion> Normal sinus rhythm Minimal voltage criteria for LVH, may be normal variant
--- NOTE | 2018-05-20 15:32 | CP.PCM.PN ---
<Hank Blas - Last Filed: 05/20/18 15:38> Subjective - Date & Time of Evaluation Date of Evaluation: 05/20/18 Time of Evaluation: 15:27 - Subjective Subjective: Hank Blas D.O. PGY-1, Internal Medicine Station Supervisor, Hospitalist Progress Note 33 year old female with a significant past medical history of alcohol induced pancreatitis, hypertension, and iron deficiency anemia who presented on 05/18 with abdominal pain and was subsequently found to have pancreatitis. Patient was seen this AM at bedside. Today, she reports worsening epigastric abdominal pain at a 7.5/10; still has complaints of indigestion and lack of appetite. Her pain is no longer controlled with morphine. She also reports newly onset mid sternal and left sided chest pressure and states it feels like someone is sitting on my chest. Other symptoms include nausea and mild facial numbness. The patients mother was present and states her daughter has a history of anxiety with similar symptoms. Pt. appeared to be more comfortable when reassessed in afternoon. \ 12 Point ROS otherwise negative. Objective - Vital Signs/Intake and Output Vital Signs (last 24 hours): Temp Pulse Resp BP Pulse Ox 98.8 F 88 18 183/97 H 94 L 05/20/18 07:59 05/20/18 14:13 05/20/18 07:59 05/20/18 14:13 05/20/18 07:59 Intake and Output: 05/20/18 05/20/18 06:59 18:59 Intake Total 3480 0 Output Total 200 Balance 3280 0 - Medications Medications: Current Medications Alprazolam (Xanax) 1 mg PO BID PRN; Protocol PRN Reason: Anxiety Last Admin: 05/19/18 22:19 Dose: 1 mg Clonidine HCl (Catapres) 0.1 mg PO TID [facility] Last Admin: 05/20/18 14:13 Dose: 0.1 mg Folic Acid (Folic Acid) 1 mg PO DAILY [facility] Last Admin: 05/20/18 09:41 Dose: 1 mg Hydralazine HCl (Apresoline) 25 mg PO BID PRN PRN Reason: Systolic Blood Pressure Last Admin: 05/20/18 10:42 Dose: 25 mg Hydralazine HCl (Apresoline) 25 mg PO QID [facility] Last Admin: 05/20/18 14:12 Dose: 25 mg Lactated Ringer's (Lactated Ringer's) 1,000 mls @ 150 mls/hr IV .Q6H40M [facility] Lisinopril (Zestril) 30 mg PO DAILY [facility] Lorazepam (Ativan) 1 mg IVP Q6H PRN; Protocol PRN Reason: Anxiety Metoprolol Tartrate (Lopressor) 100 mg PO BID [facility] Last Admin: 05/20/18 09:41 Dose: 100 mg Morphine Sulfate (Morphine) 4 mg IVP Q4H PRN PRN Reason: Pain, severe (8-10) Last Admin: 05/20/18 14:24 Dose: 4 mg Ondansetron HCl (Zofran Inj) 4 mg IVP Q4H PRN PRN Reason: Nausea/Vomiting Pantoprazole Sodium (Protonix Ec Tab) 40 mg PO 0600 [facility] Last Admin: 05/20/18 04:59 Dose: 40 mg Zolpidem Tartrate (Ambien) 5 mg PO HS PRN; Protocol PRN Reason: Insomnia Last Admin: 05/19/18 21:44 Dose: 5 mg - Labs Labs: 05/20/18 08:30 05/20/18 08:30 - Constitutional Appears: Non-toxic, In Acute Distress (mild) - Head Exam Head Exam: ATRAUMATIC, NORMOCEPHALIC - Eye Exam Eye Exam: EOMI, PERRL. absent: Scleral icterus - ENT Exam ENT Exam: Mucous Membranes Dry - Respiratory Exam Respiratory Exam: Clear to Ausculation Bilateral, NORMAL BREATHING PATTERN. absent: Rhonchi, Wheezes - Cardiovascular Exam Cardiovascular Exam: REGULAR RHYTHM, RRR, +S1, +S2. absent: Murmur - GI/Abdominal Exam GI & Abdominal Exam: Tenderness Additional comments: Involuntary guarding during abdominal exam; bowel sounds present in all four quadrants; epigastric tenderness to palpation; no rebound tenderness - Extremities Exam Extremities Exam: absent: Calf Tenderness, Pedal Edema Additional comments: 2+ TP/DP BL - Neurological Exam Neurological Exam: Alert, Awake, CN II-XII Intact, Oriented x3 - Psychiatric Exam Psychiatric exam: Normal Affect, Normal Mood - Skin Skin Exam: Dry, Intact, Warm Assessment and Plan - Assessment and Plan (Free Text) Assessment: 33 year old female with a significant past medical history of alcohol induced pancreatitis, hypertension, and iron deficiency anemia who presented on 05/18 with abdominal pain and was subsequently found to have pancreatitis. Plan: Acute Pancreatitis Likely the etiology for presenting pain, however r/o cholecystitis, acute hepatitis given RUQ abdominal pain Lipase elevated, and CTAP - Mild pancreatitis w/o nec pancreatis on admission, and symptomatic so 3/3 criteria Cont w/ NPO at this time Cont LR @150ml/hr Cont pain Control with morphine 4Q4 GI Consulted, recs appreciated Cont strict IxOs Hx HTN HD stable Cont Clonidine 0.1 TID Will increase Metoprolol from 50 BID to 100 BID Cont Hydralazine 25 QID Cont Hydralazine PRN Increased lisinopril from 20mg to lisinopril 30 EKG negative Trops negative Nephro consulted for resistant hypertension, recs pending Normocytic anemia Likely 2/2 chronic alcohol abuse HD stable No active bleeding Iron panel: elevated iron; TIBC wnl Firritin wnl Folate/ B12 wnl Continue to monitor Transaminitis In the setting of alcohol abuse with 2:1 ratio likely most likely etiology vs obesity/fatty liver CT showed fatty liver Abd US showed hepatic steatosis vs infectious/inflammatory etiology Hepatitis panel NEGATIVE Avoid hepatotoxic meds Counseled on EtOH abuse Hx Anxiety Cont home Xanax 1mg BID Started ativan q6 prn Psych consulted GI/DVT Ppx: SCD/ Protonix Dispo: continue management for acute pancreatitis at this time, multiple consultants following, their recs are appreciated. Pt is to follow up w/ PMD Dr. Vega Santos once stable for discharge. Patient was seen and examined and case was discussed at length with attending Dr. Jm Blas DO - PGY1 IM RESIDENT - PAGER [id number] <Arlene Oneal - Last Filed: 05/20/18 18:41> Objective - Vital Signs/Intake and Output Vital Signs (last 24 hours): Temp Pulse Resp BP Pulse Ox 98.8 F 88 18 166/112 H 94 L 05/20/18 07:59 05/20/18 14:13 05/20/18 07:59 05/20/18 17:19 05/20/18 07:59 Intake and Output: 05/20/18 05/20/18 06:59 18:59 Intake Total 3480 0 Output Total 200 Balance 3280 0 - Medications Medications: Current Medications Alprazolam (Xanax) 1 mg PO BID PRN; Protocol PRN Reason: Anxiety Last Admin: 05/19/18 22:19 Dose: 1 mg Amlodipine Besylate (Norvasc) 5 mg PO DAILY [facility] Last Admin: 05/20/18 17:19 Dose: 5 mg Clonidine HCl (Catapres) 0.1 mg PO Q12 [facility] Folic Acid (Folic Acid) 1 mg PO DAILY [facility] Last Admin: 05/20/18 09:41 Dose: 1 mg Hydralazine HCl (Apresoline) 50 mg PO BID [facility] Last Admin: 05/20/18 17:18 Dose: 50 mg Hydralazine HCl (Apresoline) 25 mg PO Q4 PRN PRN Reason: Systolic Blood Pressure Lactated Ringer's (Lactated Ringer's) 1,000 mls @ 100 mls/hr IV .Q10H [facility] Lisinopril (Zestril) 40 mg PO DAILY [facility] Lorazepam (Ativan) 1 mg IVP Q6H PRN; Protocol PRN Reason: Anxiety Metoprolol Tartrate (Lopressor) 100 mg PO BID [facility] Last Admin: 05/20/18 17:18 Dose: 100 mg Morphine Sulfate (Morphine) 4 mg IVP Q4H PRN PRN Reason: Pain, severe (8-10) Last Admin: 05/20/18 18:12 Dose: 4 mg Ondansetron HCl (Zofran Inj) 4 mg IVP Q4H PRN PRN Reason: Nausea/Vomiting Pantoprazole Sodium (Protonix Ec Tab) 40 mg PO 0600 [facility] Last Admin: 05/20/18 04:59 Dose: 40 mg Zolpidem Tartrate (Ambien) 5 mg PO HS PRN; Protocol PRN Reason: Insomnia Last Admin: 05/19/18 21:44 Dose: 5 mg - Labs Labs: 05/20/18 08:30 05/20/18 08:30 Attending/Attestation - Attestation I have personally seen and examined this patient.: Yes I have fully participated in the care of the patient.: Yes I have reviewed all pertinent clinical information, including history, physical exam and plan: Yes Notes (Text): 05/20/18 18:37 33 year old female with past medical history of alcohol abuse, anemia and pancreatitis presented with complaint of abdominal pain secondary to acute pancreatitis. Elevated lipase and LFTs on labs. CT abd/pelvis showed mild pancreatitis without gallstones. She is NPO with IVF and analgesics. Lipid panel was reviewed. Hepatitis panel is negative. Continue to monitor LFTs which are slowly improving. GI is following. Consider advancing diet to liquids by tomorrow if symptoms begin to improve. She was counselled on alcohol abstinence. This morning she appeared anxious, possible panic attack. Mother at bedside confers this is how she gets when she begins to have panic attacks. She is on ativan prn. Psychiatry evaluation is requested. Blood pressure remains elevated despite adjustment of medications as above. Nephrology evaluation is requested for resistant hypertension. Case was discussed with Dr. Wing today. Arlene Oneal MD Hospitalist.
--- NOTE | 2018-05-20 16:20 | CP.PCM.CON ---
History of Present Illness - History of Present Illness History of Present Illness: Nephrology Consultation Note: Assessment: Stable uncontrolled severe HTN likely trigger as pain and alcohol related acute pancreatitis hypertension (3 years), obesity, anxiety and work related stress sedentary lifestyle anemia abnormal LFT microscopic hematuria ? due to menstural periods Plan Hypertension control with meds as ordered. meds as adjusted. pt reports side effects with clonidine, will eventually like to taper it off. meds ordered as once/day or bid at max to improve her compliance. pt was educated about complications of HTN including but not limited to CV disease, kidney disease, PVD, stroke she was educated about need for lifestyle modifications, weight loss, exercise and diet control pt was educated to abstain from alcohol completely sec HTN work up with renin/donald/metanephrines, SCL-70 ab and renal artery doppler also check for LUIS ANGEL/DNA/c4/c3, Vit D level urine pro/cr Dose meds/antibiotics for normal GFR. Glycemic control, pain control Further work up/management as per primary team Thanks for allowing me to participate in care of your patient. Will follow patient with you. Please call if any Qs Dr Alexandro Wing Office: [phone] Chief Complaint; abdomen pain HPI: Pt is a 33 F with hx of hypertension (3 years), obesity, anxiety and work related stress presented with complaints of abdomen pain and found to have alcohol related pancreatitis. renal consult for HTN management Denies OTC/herbal meds or NSAIDs. denies smoking/drugs/tobacco/licorice/ decongestants admits to drinking alcohol but socially although frequency and quantity can vary doesn't exercise. check BP at work often 130-140s admits to missing BP meds dosage due to increased frequency she reported hospital visit 3-4 months ago due to elevated BP reports family hx of HTN father side ROS: Cardiovascular: No chest pain now but had this am. Pulmonary: No shortness of breath Gastrointestinal: c/o abdominal pain c/o nausea. c/o vomiting. Genitourinary: No pain while urinating. Denies blood in urine. she has menstural periods nowadays All other negative except as mentioned in HPI Physical Examination: General Appearance: Comfortable, in no acute respiratory distress, co-operative . obese Vitals reviewed and noted as below Head; Atraumatic, normocephalic ENT: no ulcers no thrush. Tongue is midline. Oropharynx: no rash or ulcers. EYES: Pupils are equal, round and reactive to light accommodation. Eye muscles and extraocular movement intact. Sclera is anicteric. Neck; supple no lymphadenopathy, no thyromegaly or bruit Lungs: Normal respiratory rate/effort. Breath sounds bilateral equal and clear Heart: Normal rate. s1s2 normal. No rub or gallop. Extremities: no edema. No varicose veins Neurological: Patient is alert, awake and oriented to person, place and time. No focal deficit. Strength bilateral appropriate and equal Skin: Warm and dry. Normal turgor. No rash. Palpitation: Normal elasticity for age Abdomen: Abdomen is soft. Bowel sounds +. There is epigastric abdominal tenderness, no guarding/rigidity no organomegaly Psych: normal insight and normal affect/mood MSK: no joint tenderness or swelling. Digits and nails normal, no deformity : kidney or bladder not palpable Labs/imaging reviewed. Past medical history, past surgical history, family history, social history, allergy reviewed and noted as below Family hx: no hx of CKD. Rest non-contributory work up: lipase 5814 hepatitis neg TSAT 67% Ferritin 73 Renal imaging: unremarkable UA 100 protein and blood ++ Past Patient History - Infectious Disease Hx of Infectious Diseases: None - Past Medical History & Family History Past Medical History?: Yes Past Family History: Reviewed and not pertinent - Past Social History Smoking Status: Former Smoker - CARDIAC Hx Cardiac Disorders: Yes Hx Hypertension: Yes - PULMONARY Hx Respiratory Disorders: No - NEUROLOGICAL Hx Neurological Disorder: No - HEENT Hx HEENT Problems: No - RENAL Hx Chronic Kidney Disease: No - ENDOCRINE/METABOLIC Hx Endocrine Disorders: No - HEMATOLOGICAL/ONCOLOGICAL Hx Blood Disorders: Yes Hx Anemia: Yes - INTEGUMENTARY Hx Dermatological Problems: No - MUSCULOSKELETAL/RHEUMATOLOGICAL Hx Musculoskeletal Disorders: No Hx Falls: No - GASTROINTESTINAL Hx Pancreatitis: Yes Other/Comment: upper intestinal obstruction,ovarian cyst - GENITOURINARY/GYNECOLOGICAL Hx Genitourinary Disorders: No - PSYCHIATRIC Hx Anxiety: Yes Hx Substance Use: No - SURGICAL HISTORY Hx Surgeries: No - ANESTHESIA Hx Anesthesia: No Meds Home Medications: Home Medication List Medication Instructions Recorded Confirmed Type ALPRAZolam [Xanax] 1 mg PO BID #8 tab 05/19/18 Rx Allergies/Adverse Reactions: Allergies Allergy/AdvReac Type Severity Reaction Status Date / Time No Known Allergies Allergy Verified 05/18/18 14:49 - Medications Medications: Current Medications Alprazolam (Xanax) 1 mg PO BID PRN; Protocol PRN Reason: Anxiety Last Admin: 05/19/18 22:19 Dose: 1 mg Clonidine HCl (Catapres) 0.1 mg PO TID [facility] Last Admin: 05/20/18 14:13 Dose: 0.1 mg Folic Acid (Folic Acid) 1 mg PO DAILY [facility] Last Admin: 05/20/18 09:41 Dose: 1 mg Hydralazine HCl (Apresoline) 25 mg PO BID PRN PRN Reason: Systolic Blood Pressure Last Admin: 05/20/18 10:42 Dose: 25 mg Hydralazine HCl (Apresoline) 25 mg PO QID [facility] Last Admin: 05/20/18 14:12 Dose: 25 mg Lactated Ringer's (Lactated Ringer's) 1,000 mls @ 150 mls/hr IV .Q6H40M [facility] Lisinopril (Zestril) 30 mg PO DAILY [facility] Lorazepam (Ativan) 1 mg IVP Q6H PRN; Protocol PRN Reason: Anxiety Metoprolol Tartrate (Lopressor) 100 mg PO BID [facility] Last Admin: 05/20/18 09:41 Dose: 100 mg Morphine Sulfate (Morphine) 4 mg IVP Q4H PRN PRN Reason: Pain, severe (8-10) Last Admin: 05/20/18 14:24 Dose: 4 mg Ondansetron HCl (Zofran Inj) 4 mg IVP Q4H PRN PRN Reason: Nausea/Vomiting Pantoprazole Sodium (Protonix Ec Tab) 40 mg PO 0600 [facility] Last Admin: 05/20/18 04:59 Dose: 40 mg Zolpidem Tartrate (Ambien) 5 mg PO HS PRN; Protocol PRN Reason: Insomnia Last Admin: 05/19/18 21:44 Dose: 5 mg Results - Vital Signs Recent Vital Signs: Last Vital Signs Temp 98.8 F 05/20/18 07:59 Pulse 88 05/20/18 14:13 Resp 18 05/20/18 07:59 BP 183/97 H 05/20/18 14:13 Pulse Ox 94 L 05/20/18 07:59 - Labs Result Diagrams: 05/20/18 08:30 05/20/18 08:30 Labs: Laboratory Results - last 24 hr 05/20/18 05/20/18 08:30 08:30 WBC 9.5 D RBC 3.10 L Hgb 10.0 L Hct 30.1 L MCV 97.1 MCH 32.3 MCHC 33.2 RDW 14.8 H Plt Count 266 MPV 9.3 Gran % 80.2 H Lymph % (Auto) 12.7 L [place] % (Auto) 5.2 Eos % (Auto) 1.7 Baso % (Auto) 0.2 Gran # 7.62 H Lymph # (Auto) 1.2 [place] # (Auto) 0.5 Eos # (Auto) 0.2 Baso # (Auto) 0.02 Sodium 140 Potassium 3.7 Chloride 99 Carbon Dioxide 25 Anion Gap 19 BUN 4 L Creatinine 0.6 L Est GFR ( Amer) > 60 Est GFR (Non-Af Amer) > 60 Random Glucose 104 Calcium 8.4 Total Bilirubin 0.8 AST 172 H ALT 86 H Alkaline Phosphatase 166 H Troponin I < 0.01 Total Protein 7.6 Albumin 4.0 Globulin 3.6 Albumin/Globulin Ratio 1.1
--- NOTE | 2018-05-20 16:33 | CP.PCM.PN ---
<Medardo Alex - Last Filed: 05/20/18 16:30> Subjective - Date & Time of Evaluation Date of Evaluation: 05/20/18 Time of Evaluation: 13:00 - Subjective Subjective: PGY-4 GI Fellow consult note Pt states pain mildly improved today but is worried about elevated BP. Objective - Vital Signs/Intake and Output Vital Signs (last 24 hours): Temp Pulse Resp BP Pulse Ox 98.8 F 88 18 183/97 H 94 L 05/20/18 07:59 05/20/18 14:13 05/20/18 07:59 05/20/18 14:13 05/20/18 07:59 Intake and Output: 05/20/18 05/20/18 06:59 18:59 Intake Total 3480 0 Output Total 200 Balance 3280 0 - Medications Medications: Current Medications Alprazolam (Xanax) 1 mg PO BID PRN; Protocol PRN Reason: Anxiety Last Admin: 05/19/18 22:19 Dose: 1 mg Amlodipine Besylate (Norvasc) 5 mg PO DAILY [facility] Clonidine HCl (Catapres) 0.1 mg PO Q12 [facility] Folic Acid (Folic Acid) 1 mg PO DAILY [facility] Last Admin: 05/20/18 09:41 Dose: 1 mg Hydralazine HCl (Apresoline) 50 mg PO BID [facility] Hydralazine HCl (Apresoline) 25 mg PO Q4 PRN PRN Reason: Systolic Blood Pressure Lactated Ringer's (Lactated Ringer's) 1,000 mls @ 100 mls/hr IV .Q10H [facility] Lisinopril (Zestril) 40 mg PO DAILY [facility] Lorazepam (Ativan) 1 mg IVP Q6H PRN; Protocol PRN Reason: Anxiety Metoprolol Tartrate (Lopressor) 100 mg PO BID [facility] Last Admin: 05/20/18 09:41 Dose: 100 mg Morphine Sulfate (Morphine) 4 mg IVP Q4H PRN PRN Reason: Pain, severe (8-10) Last Admin: 05/20/18 14:24 Dose: 4 mg Ondansetron HCl (Zofran Inj) 4 mg IVP Q4H PRN PRN Reason: Nausea/Vomiting Pantoprazole Sodium (Protonix Ec Tab) 40 mg PO 0600 [facility] Last Admin: 07/06/18 04:59 Dose: 40 mg Zolpidem Tartrate (Ambien) 5 mg PO HS PRN; Protocol PRN Reason: Insomnia Last Admin: 05/19/18 21:44 Dose: 5 mg - Labs Labs: 05/20/18 08:30 05/20/18 08:30 - Constitutional Appears: Well, No Acute Distress - Eye Exam Eye Exam: EOMI, Scleral icterus. absent: Conjunctival injection - Respiratory Exam Respiratory Exam: Clear to Ausculation Bilateral. absent: Accessory Muscle Use - GI/Abdominal Exam GI & Abdominal Exam: Soft, Tenderness (in epigastrum w/o guarding), Normal Bowel Sounds Assessment and Plan - Assessment and Plan (Free Text) Assessment: Acute Pancreatitis: 3/3 criteria with typical symptoms, lipase >3x ULN and radiographic imaging. Trigger likely related to EtOH as recent consumption with onset of symptoms. Though pt denied large consumption, some patients, especially females, can be sensitive to EtOH that could produced pancreatitis and hepatitis. Furthermore, patient can always be under reporting consumption habits (she reported drinking just prior to admission to medicine team, but told this author that she drank 3 weeks ago and none since when her mother was present). TGs not significantly elevate to be TG-induced. Acute Hepatitis: Likely EtOH induced given pattern AST/ALT and as well as correlating radiographic studies and concomitant pancreatitis. Viral Hepatitis ruled out. Plan: NPO in persistent pain, but if patient wanting to eat can trial clears Continue IVF with Lactated Ringers Pain Control Counseled patient on complete EtOH cessation <James Renee V - Last Filed: 05/20/18 23:57> Objective - Vital Signs/Intake and Output Vital Signs (last 24 hours): Temp Pulse Resp BP Pulse Ox 98.6 F 120 H 19 180/100 H 95 05/20/18 18:00 05/20/18 22:17 05/20/18 18:00 05/20/18 22:17 05/20/18 18:00 Intake and Output: 05/20/18 05/21/18 18:59 06:59 Intake Total 0 0 Balance 0 0 - Medications Medications: Current Medications Alprazolam (Xanax) 1 mg PO BID PRN; Protocol PRN Reason: Anxiety Last Admin: 05/19/18 22:19 Dose: 1 mg Amlodipine Besylate (Norvasc) 5 mg PO DAILY [facility] Last Admin: 05/20/18 17:19 Dose: 5 mg Clonidine HCl (Catapres) 0.1 mg PO Q12 [facility] Last Admin: 05/20/18 22:17 Dose: 0.1 mg Folic Acid (Folic Acid) 1 mg PO DAILY [facility] Last Admin: 05/20/18 09:41 Dose: 1 mg Hydralazine HCl (Apresoline) 50 mg PO BID [facility] Last Admin: 05/20/18 17:18 Dose: 50 mg Hydralazine HCl (Apresoline) 25 mg PO Q4 PRN PRN Reason: Systolic Blood Pressure Last Admin: 05/20/18 20:21 Dose: 25 mg Lactated Ringer's (Lactated Ringer's) 1,000 mls @ 100 mls/hr IV .Q10H [facility] Lisinopril (Zestril) 40 mg PO DAILY [facility] Lorazepam (Ativan) 1 mg IVP Q6H PRN; Protocol PRN Reason: Anxiety Last Admin: 05/20/18 18:48 Dose: 1 mg Metoprolol Tartrate (Lopressor) 100 mg PO BID [facility] Last Admin: 05/20/18 17:18 Dose: 100 mg Morphine Sulfate (Morphine) 4 mg IVP Q4H PRN PRN Reason: Pain, severe (8-10) Last Admin: 05/20/18 18:12 Dose: 4 mg Ondansetron HCl (Zofran Inj) 4 mg IVP Q4H PRN PRN Reason: Nausea/Vomiting Last Admin: 05/20/18 20:53 Dose: 4 mg Pantoprazole Sodium (Protonix Ec Tab) 40 mg PO 0600 [facility] Last Admin: 05/20/18 04:59 Dose: 40 mg Zolpidem Tartrate (Ambien) 5 mg PO HS PRN; Protocol PRN Reason: Insomnia Last Admin: 05/20/18 22:18 Dose: 5 mg - Labs Labs: 05/20/18 08:30 05/20/18 08:30 Attending/Attestation - Attestation I have personally seen and examined this patient.: Yes I have fully participated in the care of the patient.: Yes I have reviewed all pertinent clinical information, including history, physical exam and plan: Yes Notes (Text): This is an addendum to GI progress report dictated by the GI Fellow.The patient was seen and examined earlier. Medical records, lab studies, imagings were reviewed. Last 24 hours events reviewed. Agreed with the above treatment plan as outlined in GI Fellow 's notes the with the addition of the following 05/20/18 23:57
--- NOTE | 2018-05-20 23:27 | CON ---
DATE: 05/20/2018 HISTORY OF PRESENT ILLNESS: Shortly, the patient is 33-year-old female, history of anxiety, multiple medical issues. The patient was admitted on the medical floor for evaluation of abdominal pain. The patient was found to have pancreatitis. Psych consult was called for evaluation of anxiety and the patient is on Xanax. The patient was seen and examined today. The patient presented to be sleepy. The patient reported that she has not got her pain medication and she feels drowsy, and the patient requested this typewriter operator automatic to come back later on, but the patient was able to answer for the basic questions. The patient denied that she feels depressed. The patient denied any thoughts of harming herself or others in regards of anxiety. The patient suffers from panic attacks and her primary care physician was prescribing Xanax 1 mg twice a day. The patient reported that she was allowed by psychiatrist in the past, but did not want to find that to be beneficial to her. The patient denied hearing voices, denied seeing things, denied feeling of hopelessness or helplessness. As of now, the patient has never been hospitalized into the psychiatric inpatient unit and denied any suicidal attempts in the past. PHYSICAL EXAMINATION: VITAL SIGNS: Reviewed. Blood pressure is elevated. Pulse is 88, blood pressure 168/109. MEDICATIONS: Reviewed. The patient is on Xanax 1 mg twice a day, Catapres 0.1 mg three times a day, folic acid, Lopressor, morphine, Zofran, Protonix, and Ambien as needed. LABORATORY DATA: Reviewed. Hematology: Hemoglobin is 10, hematocrit 30.1. Chemistry reviewed. AST and ALT elevated at 172 and 86 respectively. Leukocyte esterase trace. Toxicology positive for benzodiazepines. Serology is negative. MENTAL STATUS EXAM: The patient appears to be sleepy, but was able to help with the interview. Intermittent eye contact, good personal hygiene. Mood described as "I feel very sleepy right now." Affect was constricted. Thought process coherent and goal directed. Thought content: The patient denied visual, auditory, or tactile hallucinations. Denied paranoid ideation. The patient denied thoughts of harming herself or others. Denied intent or plan. Insight and judgment seem to be fair. Impulses are well controlled. IMPRESSION: As per history, anxiety, rule out generalized anxiety disorder, rule out panic disorder. PLAN: As per the patient, the patient was taking Xanax 1 mg twice a day as needed, which was resumed by medical team. The patient denied being depressed. Denied thoughts of killing herself or others. The patient denied being depressed. There is no need for psychiatric team to follow up on this patient unless the patient is depressed or had any thoughts of killing herself or change in mental status. As of now, continue current management. The patient has followup appointment with her primary care physician. The patient did not express any interest to follow up with psychiatrist. If you feel the patient meets the criteria to talk to the psychiatrist, please call us back. Meanwhile, this typewriter operator automatic will sign off from this case. Should you have any questions, give me a call back. Deanna Bower MD
[2018-05-21] MEDS: Morphine 4 mg/ml ISec IVP PRN ×6 (00:44→21:45)
[2018-05-21 10:04] LABS: ALB/GLOB RATIO 1.1 (1.1-1.8); ALBUMIN 4.2 g/dL (3.0-4.8); ALT/SGPT 79 U/L (7-56); AST/SGOT 169 U/L (14-36); BLOOD UREA NITROGEN 3 mg/dL (7-21); CALCIUM 8.5 mg/dL (8.4-10.5); GFR AFRICAN-AMERICAN > 60; GFR NON-AFRICAN AMERICAN > 60
[2018-05-21 10:08] LABS: BASO # 0.02 K/mm3 (0.0-2.0); BASO % 0.2 % (0.0-3.0); EOS # 0.1 (0.0-0.7); EOS % 0.7 % (1.5-5.0); GRAN # 9.04 (1.4-6.5); HEMOGLOBIN 10.1 g/dL (12.0-16.0); LYMPH # 1.5 (1.2-3.4); LYMPH % 13.2 % (22.0-35.0); MEAN CELL VOLUME 96.9 fl (80.0-105.0); MEAN CORPUSCULAR HEMOGLOBIN 31.6 pg (25.0-35.0); MEAN CORPUSCULAR HGB CONC 32.6 g/dl (31.0-37.0); MEAN PLATELET VOLUME 9.4 fl (7.0-11.0); MONO # 0.6 (0.1-0.6); MONO % 4.9 % (1.0-6.0); RBC 3.2 10^6/uL (3.5-6.1); RED CELL DISTRIBUTION WIDTH 14.9 % (11.5-14.5); WHITE BLOOD COUNT 11.2 10^3/ul (4.5-11.0)
--- NOTE | 2018-05-21 10:37 | CP.PCM.PN ---
Subjective - Date & Time of Evaluation Date of Evaluation: 05/21/18 Time of Evaluation: 10:34 - Subjective Subjective: Nephrology Consultation Note: Assessment: Stable uncontrolled severe HTN likely trigger as pain and alcohol related acute pancreatitis hypertension (3 years), obesity, anxiety and work related stress sedentary lifestyle anemia abnormal LFT microscopic hematuria ? due to menstural periods Plan Hypertension control with meds as ordered. meds as adjusted. pt reports side effects with clonidine, will eventually like to taper it off. meds ordered as once/day or bid at max to improve her compliance. added chlorthalidone 25 m/da pt was educated about complications of HTN including but not limited to CV disease, kidney disease, PVD, stroke she was educated about need for lifestyle modifications, weight loss, exercise and diet control pt was educated to abstain from alcohol completely she was also advised to post-pone plans for until BP better controlled. also cautioned about toxicity of BP meds. p says she doesn't has any plan for soon d/c IVF since she is on diet sec HTN work up with renin/donald/metanephrines, SCL-70 ab and renal artery doppler also check for LUIS ANGEL/DNA/c4/c3, Vit D level urine pro/cr Dose meds/antibiotics for normal GFR. Glycemic control, pain control Further work up/management as per primary team Thanks for allowing me to participate in care of your patient. Will follow patient with you. Please call if any Qs Dr Alexandro Wing Office: [phone] Chief Complaint; abdomen pain HPI: Pt is a 33 F with hx of hypertension (3 years), obesity, anxiety and work related stress presented with complaints of abdomen pain and found to have alcohol related pancreatitis. renal consult for HTN management Denies OTC/herbal meds or NSAIDs. denies smoking/drugs/tobacco/licorice/ decongestants admits to drinking alcohol but socially although frequency and quantity can vary doesn't exercise. check BP at work often 130-140s admits to missing BP meds dosage due to increased frequency she reported hospital visit 3-4 months ago due to elevated BP reports family hx of HTN father side ROS: Cardiovascular: No chest pain now Pulmonary: No shortness of breath Gastrointestinal: improved abdominal pain/nausea/ vomiting. Genitourinary: No pain while urinating. Denies blood in urine. she has menstural periods nowadays All other negative except as mentioned in HPI Physical Examination: General Appearance: Comfortable, in no acute respiratory distress, co-operative . obese Vitals reviewed and noted as below Head; Atraumatic, normocephalic ENT: no ulcers no thrush. Tongue is midline. Oropharynx: no rash or ulcers. EYES: Pupils are equal, round and reactive to light accommodation. Eye muscles and extraocular movement intact. Sclera is anicteric. Neck; supple no lymphadenopathy, no thyromegaly or bruit Lungs: Normal respiratory rate/effort. Breath sounds bilateral equal and clear Heart: Normal rate. s1s2 normal. No rub or gallop. Extremities: no edema. No varicose veins Neurological: Patient is alert, awake and oriented to person, place and time. No focal deficit. Strength bilateral appropriate and equal Skin: Warm and dry. Normal turgor. No rash. Palpitation: Normal elasticity for age Abdomen: Abdomen is soft. Bowel sounds +. There is improved epigastric abdominal tenderness, no guarding/rigidity no organomegaly Psych: normal insight and normal affect/mood MSK: no joint tenderness or swelling. Digits and nails normal, no deformity : kidney or bladder not palpable Labs/imaging reviewed. Past medical history, past surgical history, family history, social history, allergy reviewed and noted as below Family hx: no hx of CKD. Rest non-contributory work up: lipase 5814 hepatitis neg TSAT 67% Ferritin 73 Renal imaging: unremarkable UA 100 protein and blood ++ Objective - Vital Signs/Intake and Output Vital Signs (last 24 hours): Temp Pulse Resp BP Pulse Ox 99.2 F 80 19 170/98 H 94 L 05/21/18 06:00 05/21/18 09:34 05/21/18 06:00 05/21/18 09:34 05/21/18 06:00 Intake and Output: 05/21/18 05/21/18 06:59 18:59 Intake Total 0 Balance 0 - Medications Medications: Current Medications Alprazolam (Xanax) 1 mg PO BID PRN; Protocol PRN Reason: Anxiety Last Admin: 05/21/18 09:33 Dose: 1 mg Amlodipine Besylate (Norvasc) 10 mg PO DAILY [facility] Last Admin: 05/21/18 09:32 Dose: 10 mg Chlorthalidone (Hygroton) 25 mg PO DAILY [facility] Clonidine HCl (Catapres) 0.1 mg PO Q12 [facility] Last Admin: 05/21/18 09:31 Dose: 0.1 mg Folic Acid (Folic Acid) 1 mg PO DAILY [facility] Last Admin: 05/21/18 09:32 Dose: 1 mg Hydralazine HCl (Apresoline) 50 mg PO BID [facility] Last Admin: 05/21/18 09:34 Dose: 50 mg Hydralazine HCl (Apresoline) 25 mg PO Q4 PRN PRN Reason: Systolic Blood Pressure Last Admin: 05/21/18 05:47 Dose: 25 mg Lisinopril (Zestril) 40 mg PO DAILY [facility] Last Admin: 05/21/18 09:32 Dose: 40 mg Lorazepam (Ativan) 1 mg IVP Q6H PRN; Protocol PRN Reason: Anxiety Last Admin: 05/21/18 05:53 Dose: 1 mg Metoprolol Tartrate (Lopressor) 100 mg PO BID [facility] Last Admin: 05/21/18 09:32 Dose: 100 mg Morphine Sulfate (Morphine) 4 mg IVP Q4H PRN PRN Reason: Pain, severe (8-10) Last Admin: 05/21/18 09:31 Dose: 4 mg Ondansetron HCl (Zofran Inj) 4 mg IVP Q4H PRN PRN Reason: Nausea/Vomiting Last Admin: 05/21/18 09:31 Dose: 4 mg Pantoprazole Sodium (Protonix Ec Tab) 40 mg PO 0600 [facility] Last Admin: 05/20/18 04:59 Dose: 40 mg Zolpidem Tartrate (Ambien) 5 mg PO HS PRN; Protocol PRN Reason: Insomnia Last Admin: 05/20/18 22:18 Dose: 5 mg - Labs Labs: 05/21/18 09:30 05/21/18 09:30
[2018-05-21] MEDS ORDERED: Magnesium 2 gm/50 ml NS 2 GM/50 ML BAG IVPB ONE (11:20)
[2018-05-21 12:36] LABS: COMPLEMENT C4 44.5 mg/dL (14.0-44.0)
--- NOTE | 2018-05-21 13:06 | CP.PCM.PN ---
<Tad Upton - Last Filed: 05/21/18 18:04> Subjective - Date & Time of Evaluation Date of Evaluation: 05/21/18 Time of Evaluation: 10:30 - Subjective Subjective: Pt seen and examined at bedside this am. States she slept well overnight, feels more calm and relaxed today. Tolerated eating Jello this am, denies nausea or episodes of vomiting. Observed ambulating around room. Denies pain currently. Objective - Vital Signs/Intake and Output Vital Signs (last 24 hours): Temp Pulse Resp BP Pulse Ox 99.2 F 80 19 143/95 H 94 L 05/21/18 06:00 05/21/18 09:34 05/21/18 06:00 05/21/18 10:51 05/21/18 06:00 Intake and Output: 05/21/18 05/21/18 06:59 18:59 Intake Total 0 Balance 0 - Medications Medications: Current Medications Alprazolam (Xanax) 1 mg PO BID PRN; Protocol PRN Reason: Anxiety Last Admin: 05/21/18 09:33 Dose: 1 mg Amlodipine Besylate (Norvasc) 10 mg PO DAILY [facility] Last Admin: 05/21/18 09:32 Dose: 10 mg Chlorthalidone (Hygroton) 25 mg PO DAILY [facility] Last Admin: 05/21/18 10:42 Dose: 25 mg Clonidine HCl (Catapres) 0.1 mg PO Q12 [facility] Last Admin: 05/21/18 09:31 Dose: 0.1 mg Folic Acid (Folic Acid) 1 mg PO DAILY [facility] Last Admin: 05/21/18 09:32 Dose: 1 mg Hydralazine HCl (Apresoline) 50 mg PO BID [facility] Last Admin: 05/21/18 09:34 Dose: 50 mg Hydralazine HCl (Apresoline) 25 mg PO Q4 PRN PRN Reason: Systolic Blood Pressure Last Admin: 05/21/18 05:47 Dose: 25 mg Lisinopril (Zestril) 40 mg PO DAILY [facility] Last Admin: 05/21/18 09:32 Dose: 40 mg Lorazepam (Ativan) 1 mg IVP Q6H PRN; Protocol PRN Reason: Anxiety Last Admin: 05/21/18 05:53 Dose: 1 mg Metoprolol Tartrate (Lopressor) 100 mg PO BID [facility] Last Admin: 05/21/18 09:32 Dose: 100 mg Morphine Sulfate (Morphine) 4 mg IVP Q4H PRN PRN Reason: Pain, severe (8-10) Last Admin: 05/21/18 09:31 Dose: 4 mg Ondansetron HCl (Zofran Inj) 4 mg IVP Q4H PRN PRN Reason: Nausea/Vomiting Last Admin: 05/21/18 09:31 Dose: 4 mg Pantoprazole Sodium (Protonix Ec Tab) 40 mg PO 0600 [facility] Last Admin: 05/20/18 04:59 Dose: 40 mg Zolpidem Tartrate (Ambien) 5 mg PO HS PRN; Protocol PRN Reason: Insomnia Last Admin: 05/20/18 22:18 Dose: 5 mg - Labs Labs: 05/21/18 09:30 05/21/18 09:30 - Constitutional Appears: Non-toxic, No Acute Distress - Head Exam Head Exam: ATRAUMATIC, NORMOCEPHALIC - Eye Exam Eye Exam: EOMI, Normal appearance, PERRL - ENT Exam ENT Exam: Mucous Membranes Moist, Normal Oropharynx - Respiratory Exam Respiratory Exam: Clear to Ausculation Bilateral, NORMAL BREATHING PATTERN - Cardiovascular Exam Cardiovascular Exam: REGULAR RHYTHM, +S1, +S2 - GI/Abdominal Exam GI & Abdominal Exam: Soft, Normal Bowel Sounds Additional comments: mild tenderness to palpation in epigastrum, no rebound tenderness - Extremities Exam Extremities Exam: Full ROM, Normal Capillary Refill, Normal Inspection - Back Exam Back Exam: NORMAL INSPECTION - Neurological Exam Neurological Exam: Alert, Awake, Normal Gait, Oriented x3 - Psychiatric Exam Psychiatric exam: Normal Affect, Normal Mood - Skin Skin Exam: Dry, Intact, Normal Color, Warm Assessment and Plan - Assessment and Plan (Free Text) Assessment: 33 year old female with a significant past medical history of alcohol-induced pancreatitis, hypertension, and iron deficiency anemia, who presented on 05/18/18 with abdominal pain and was subsequently found to have pancreatitis. Plan: Acute Pancreatitis Likely the etiology for presenting pain, however r/o cholecystitis, acute hepatitis given RUQ abdominal pain Lipase elevated, and CTAP - Mild pancreatitis w/o nec pancreatis on admission, and symptomatic so 3/3 criteria Cont w/ liquid diet, advance as tolerated Cont LR @150ml/hr Cont pain control with taper morphine to 2 mg q 4h GI Consulted, f/u recs Cont strict IxOs Hx HTN HD stable, continue to trend vitals Cont Clonidine 0.1 TID Metoprolol 100 BID Cont Hydralazine 25 QID Cont Hydralazine PRN Lisinopril 40 mg daily Norvasc 10 mg daily Nephro added chlorthalidone 25 mg PO daily EKG negative Trops negative Nephro consulted for resistant hypertension, f/u recs, w/u pending for 2/2 causes of HTN Renal artery doppler done, f/u results Normocytic anemia Likely 2/2 chronic alcohol abuse HD stable No active bleeding Iron panel: elevated iron; TIBC wnl, Ferritin wnl Folate/B12 wnl Continue to monitor Transaminitis In the setting of alcohol abuse with 2:1 ratio likely most likely etiology vs obesity/fatty liver LFTs trending down CT showed fatty liver Abd US showed hepatic steatosis vs infectious/inflammatory etiology Hepatitis panel NEGATIVE Avoid hepatotoxic meds Pt counseled on EtOH abuse Hx Anxiety Cont home Xanax 1mg BID Started ativan q6 prn Psych consulted, f/u recs GI/DVT Ppx: SCD/ Protonix Dispo: continue management for acute pancreatitis at this time, multiple consultants following, their recs are appreciated. Pt is to follow up w/ PMD Dr. Vega Santos once stable for discharge. Patient was seen and examined and case was discussed at length with attending Dr. Jm Upton DO PGY-1, [employer] Pager #[phone] <Arlene Oneal - Last Filed: 05/21/18 19:01> Objective - Vital Signs/Intake and Output Vital Signs (last 24 hours): Temp Pulse Resp BP Pulse Ox 98.1 F 87 20 157/107 H 96 05/21/18 16:30 05/21/18 17:28 05/21/18 16:30 05/21/18 17:28 05/21/18 16:30 Intake and Output: 05/21/18 05/21/18 06:59 18:59 Intake Total 0 Balance 0 - Medications Medications: Current Medications Alprazolam (Xanax) 1 mg PO BID PRN; Protocol PRN Reason: Anxiety Last Admin: 05/21/18 09:33 Dose: 1 mg Amlodipine Besylate (Norvasc) 10 mg PO DAILY [facility] Last Admin: 05/21/18 09:32 Dose: 10 mg Chlorthalidone (Hygroton) 25 mg PO DAILY [facility] Last Admin: 05/21/18 10:42 Dose: 25 mg Clonidine HCl (Catapres) 0.1 mg PO Q12 [facility] Last Admin: 05/21/18 09:31 Dose: 0.1 mg Folic Acid (Folic Acid) 1 mg PO DAILY [facility] Last Admin: 05/21/18 09:32 Dose: 1 mg Hydralazine HCl (Apresoline) 50 mg PO BID [facility] Last Admin: 05/21/18 17:28 Dose: 50 mg Hydralazine HCl (Apresoline) 25 mg PO Q4 PRN PRN Reason: Systolic Blood Pressure Last Admin: 05/21/18 05:47 Dose: 25 mg Lisinopril (Zestril) 40 mg PO DAILY [facility] Last Admin: 05/21/18 09:32 Dose: 40 mg Lorazepam (Ativan) 1 mg IVP Q6H PRN; Protocol PRN Reason: Anxiety Last Admin: 05/21/18 15:38 Dose: 1 mg Metoprolol Tartrate (Lopressor) 100 mg PO BID [facility] Last Admin: 05/21/18 17:28 Dose: 100 mg Morphine Sulfate (Morphine) 2 mg IVP Q4H PRN PRN Reason: Pain, severe (8-10) Last Admin: 05/21/18 17:35 Dose: 2 mg Ondansetron HCl (Zofran Inj) 4 mg IVP Q4H PRN PRN Reason: Nausea/Vomiting Last Admin: 05/21/18 17:35 Dose: 4 mg Pantoprazole Sodium (Protonix Ec Tab) 40 mg PO 0600 [facility] Last Admin: 05/20/18 04:59 Dose: 40 mg Zolpidem Tartrate (Ambien) 5 mg PO HS PRN; Protocol PRN Reason: Insomnia Last Admin: 05/20/18 22:18 Dose: 5 mg - Labs Labs: 05/21/18 09:30 05/21/18 09:30 Attending/Attestation - Attestation I have personally seen and examined this patient.: Yes I have fully participated in the care of the patient.: Yes I have reviewed all pertinent clinical information, including history, physical exam and plan: Yes Notes (Text): 05/21/18 18:56 33 year old female with past medical history of alcohol abuse, anemia and pancreatitis presented with complaint of abdominal pain secondary to acute pancreatitis. Elevated lipase and LFTs on labs. CT abd/pelvis showed mild pancreatitis without gallstones. Hepatitis panel is negative. Continue to monitor LFTs which are slowly improving. GI is following. Her symptoms are improving and diet is advanced to liquids. She was counselled on alcohol abstinence. Nephrology is following for hypertension. Medications were adjusted yesterday and chlorthalidone is added today. BP has improved. Arlene Oneal MD Hospitalist.
[2018-05-21 16:30] VITALS: RESP 20
[2018-05-22] MEDS: Morphine 4 mg/ml ISec IVP PRN ×2 (02:36→06:34)
[2018-05-22] MEDS: Pantoprazole 40 mg EC Tab PO SCH (06:33)
[2018-05-22 06:42] LABS: BASO # 0.03 K/mm3 (0.0-2.0); BASO % 0.2 % (0.0-3.0); EOS # 0.2 (0.0-0.7); EOS % 1.2 % (1.5-5.0); GRAN # 10.45 (1.4-6.5); GRAN % 80.8 % (50.0-68.0); HEMOGLOBIN 10.6 g/dL (12.0-16.0); LYMPH # 1.7 (1.2-3.4); LYMPH % 13.2 % (22.0-35.0); MEAN CELL VOLUME 96.6 fl (80.0-105.0); MEAN CORPUSCULAR HEMOGLOBIN 32.3 pg (25.0-35.0); MEAN CORPUSCULAR HGB CONC 33.4 g/dl (31.0-37.0); MEAN PLATELET VOLUME 9.2 fl (7.0-11.0); MONO # 0.6 (0.1-0.6); MONO % 4.6 % (1.0-6.0); RBC 3.28 10^6/uL (3.5-6.1); RED CELL DISTRIBUTION WIDTH 15.2 % (11.5-14.5); WHITE BLOOD COUNT 12.9 10^3/ul (4.5-11.0)
[2018-05-22 07:26] LABS: ALB/GLOB RATIO 1.2 (1.1-1.8); ALBUMIN 4.1 g/dL (3.0-4.8); ALT/SGPT 87 U/L (7-56); AST/SGOT 213 U/L (14-36); BLOOD UREA NITROGEN 4 mg/dL (7-21); CALCIUM 9.2 mg/dL (8.4-10.5); GFR AFRICAN-AMERICAN > 60; GFR NON-AFRICAN AMERICAN > 60
[2018-05-22] MEDS ORDERED: Simethicone 80 mg Chewtab PO ONE (09:27)
[2018-05-22] MEDS: Lactated Ringer's 1,000 ML IV SCH ×2 (09:57→20:04)
[2018-05-22] MEDS ORDERED: Ergocalciferol 50,000 Intl Units Cap PO SCH (10:00)
[2018-05-22] MEDS: Morphine 2 mg/ml ISec IVP PRN ×4 (10:50→22:00)
--- NOTE | 2018-05-22 11:50 | CP.PCM.PN ---
Subjective - Date & Time of Evaluation Date of Evaluation: 05/22/18 Time of Evaluation: 11:48 - Subjective Subjective: Nephrology Consultation Note: Assessment: Stable uncontrolled severe HTN likely trigger as pain and alcohol related acute pancreatitis hypertension (3 years), obesity, anxiety and work related stress sedentary lifestyle anemia abnormal LFT microscopic hematuria ? due to menstural periods Plan Hypertension control with meds as ordered. meds as adjusted. pt reports side effects with clonidine, will eventually like to taper it off. meds ordered as once/day or bid at max to improve her compliance. added chlorthalidone 25 mg/day pt was educated about complications of HTN including but not limited to CV disease, kidney disease, PVD, stroke she was educated about need for lifestyle modifications, weight loss, exercise and diet control pt was educated to abstain from alcohol completely she was also advised to post-pone plans for until BP better controlled. also cautioned about toxicity of BP meds. p says she doesn't has any plan for soon can d/c IVF since she is on diet started weekly vit D sec HTN work up with renin/donald/metanephrines, SCL-70 ab and renal artery doppler also check for LUIS ANGEL/DNA/c4/c3, Vit D level urine pro/cr Dose meds/antibiotics for normal GFR. Glycemic control, pain control Further work up/management as per primary team pt stable for d/c from renal perspective wheen planned Thanks for allowing me to participate in care of your patient. Will follow patient with you. Please call if any Qs Dr Alexandro Wing Office: [phone] Chief Complaint; abdomen pain HPI: Pt is a 33 F with hx of hypertension (3 years), obesity, anxiety and work related stress presented with complaints of abdomen pain and found to have alcohol related pancreatitis. renal consult for HTN management Denies OTC/herbal meds or NSAIDs. denies smoking/drugs/tobacco/licorice/ decongestants admits to drinking alcohol but socially although frequency and quantity can vary doesn't exercise. check BP at work often 130-140s admits to missing BP meds dosage due to increased frequency she reported hospital visit 3-4 months ago due to elevated BP reports family hx of HTN father side ROS: Cardiovascular: No chest pain now Pulmonary: No shortness of breath Gastrointestinal: improved abdominal pain/nausea/ vomiting. Genitourinary: No pain while urinating. Denies blood in urine. All other negative except as mentioned in HPI Physical Examination: General Appearance: Comfortable, in no acute respiratory distress, co-operative . obese Vitals reviewed and noted as below Head; Atraumatic, normocephalic ENT: no ulcers no thrush. Tongue is midline. Oropharynx: no rash or ulcers. EYES: Pupils are equal, round and reactive to light accommodation. Eye muscles and extraocular movement intact. Sclera is anicteric. Neck; supple no lymphadenopathy, no thyromegaly or bruit Lungs: Normal respiratory rate/effort. Breath sounds bilateral equal and clear Heart: Normal rate. s1s2 normal. No rub or gallop. Extremities: no edema. No varicose veins Neurological: Patient is alert, awake and oriented to person, place and time. No focal deficit. Strength bilateral appropriate and equal Skin: Warm and dry. Normal turgor. No rash. Palpitation: Normal elasticity for age Abdomen: Abdomen is soft. Bowel sounds +. There is improved epigastric abdominal tenderness, no guarding/rigidity no organomegaly Psych: normal insight and normal affect/mood MSK: no joint tenderness or swelling. Digits and nails normal, no deformity : kidney or bladder not palpable Labs/imaging reviewed. Past medical history, past surgical history, family history, social history, allergy reviewed and noted as below Family hx: no hx of CKD. Rest non-contributory work up: lipase 5814 hepatitis neg TSAT 67% Ferritin 73 Renal imaging: unremarkable UA 100 protein and blood ++ Objective - Vital Signs/Intake and Output Vital Signs (last 24 hours): Temp Pulse Resp BP Pulse Ox 98.2 F 83 20 140/89 98 05/22/18 06:00 05/22/18 09:56 05/22/18 06:00 05/22/18 09:56 05/22/18 06:00 Intake and Output: 05/22/18 05/22/18 06:59 18:59 Intake Total 360 Balance 360 - Medications Medications: Current Medications Alprazolam (Xanax) 1 mg PO BID PRN; Protocol PRN Reason: Anxiety Last Admin: 05/21/18 09:33 Dose: 1 mg Amlodipine Besylate (Norvasc) 10 mg PO DAILY [facility] Last Admin: 05/22/18 09:55 Dose: 10 mg Chlorthalidone (Hygroton) 25 mg PO DAILY [facility] Last Admin: 05/22/18 09:56 Dose: 25 mg Clonidine HCl (Catapres) 0.1 mg PO Q12 [facility] Last Admin: 05/22/18 09:56 Dose: 0.1 mg Ergocalciferol (Drisdol 50,000 Intl Units Cap) 1 cap PO Q7D [facility] Last Admin: 05/22/18 09:55 Dose: 1 cap Folic Acid (Folic Acid) 1 mg PO DAILY [facility] Last Admin: 05/22/18 09:56 Dose: 1 mg Hydralazine HCl (Apresoline) 50 mg PO BID [facility] Last Admin: 05/22/18 09:56 Dose: 50 mg Hydralazine HCl (Apresoline) 25 mg PO Q4 PRN PRN Reason: Systolic Blood Pressure Last Admin: 05/21/18 05:47 Dose: 25 mg Lactated Ringer's (Lactated Ringer's) 1,000 mls @ 100 mls/hr IV .Q10H [facility] Last Admin: 05/22/18 09:57 Dose: 100 mls/hr Lisinopril (Zestril) 40 mg PO DAILY [facility] Last Admin: 05/22/18 09:56 Dose: 40 mg Lorazepam (Ativan) 1 mg IVP Q6H PRN; Protocol PRN Reason: Anxiety Last Admin: 05/22/18 06:45 Dose: 1 mg Metoprolol Tartrate (Lopressor) 100 mg PO BID [facility] Last Admin: 05/22/18 09:56 Dose: 100 mg Morphine Sulfate (Morphine) 2 mg IVP Q4H PRN PRN Reason: Pain, severe (8-10) Stop: 05/24/18 13:08 Last Admin: 05/22/18 10:50 Dose: 2 mg Ondansetron HCl (Zofran Inj) 4 mg IVP Q4H PRN PRN Reason: Nausea/Vomiting Last Admin: 05/22/18 10:50 Dose: 4 mg Pantoprazole Sodium (Protonix Ec Tab) 40 mg PO 0600 [facility] Last Admin: 05/22/18 06:33 Dose: 40 mg Zolpidem Tartrate (Ambien) 5 mg PO HS PRN; Protocol PRN Reason: Insomnia Last Admin: 05/22/18 00:06 Dose: 5 mg - Labs Labs: 05/22/18 06:20 05/22/18 06:20
--- NOTE | 2018-05-22 14:32 | CP.PCM.PN ---
Subjective - Date & Time of Evaluation Date of Evaluation: 05/22/18 Time of Evaluation: 12:00 - Subjective Subjective: PGY5 GI Follow-up Pt seen and examined pt states that she sildiana has some pain with meals, but improved +BM No other complaints ROS: 12 point ROS conducted, neg other than above Objective - Vital Signs/Intake and Output Vital Signs (last 24 hours): Temp Pulse Resp BP Pulse Ox 98.2 F 83 20 140/89 98 05/22/18 06:00 05/22/18 09:56 05/22/18 06:00 05/22/18 09:56 05/22/18 06:00 Intake and Output: 05/22/18 05/22/18 06:59 18:59 Intake Total 360 Balance 360 - Medications Medications: Current Medications Alprazolam (Xanax) 1 mg PO BID PRN; Protocol PRN Reason: Anxiety Last Admin: 05/21/18 09:33 Dose: 1 mg Amlodipine Besylate (Norvasc) 10 mg PO DAILY [facility] Last Admin: 05/22/18 09:55 Dose: 10 mg Chlorthalidone (Hygroton) 25 mg PO DAILY [facility] Last Admin: 05/22/18 09:56 Dose: 25 mg Clonidine HCl (Catapres) 0.1 mg PO Q12 [facility] Last Admin: 05/22/18 09:56 Dose: 0.1 mg Ergocalciferol (Drisdol 50,000 Intl Units Cap) 1 cap PO Q7D [facility] Last Admin: 05/22/18 09:55 Dose: 1 cap Folic Acid (Folic Acid) 1 mg PO DAILY [facility] Last Admin: 05/22/18 09:56 Dose: 1 mg Hydralazine HCl (Apresoline) 50 mg PO BID [facility] Last Admin: 05/22/18 09:56 Dose: 50 mg Hydralazine HCl (Apresoline) 25 mg PO Q4 PRN PRN Reason: Systolic Blood Pressure Last Admin: 05/21/18 05:47 Dose: 25 mg Lactated Ringer's (Lactated Ringer's) 1,000 mls @ 100 mls/hr IV .Q10H [facility] Last Admin: 05/22/18 09:57 Dose: 100 mls/hr Lisinopril (Zestril) 40 mg PO DAILY [facility] Last Admin: 05/22/18 09:56 Dose: 40 mg Lorazepam (Ativan) 1 mg IVP Q6H PRN; Protocol PRN Reason: Anxiety Last Admin: 05/22/18 06:45 Dose: 1 mg Metoprolol Tartrate (Lopressor) 100 mg PO BID [facility] Last Admin: 05/22/18 09:56 Dose: 100 mg Morphine Sulfate (Morphine) 2 mg IVP Q4H PRN PRN Reason: Pain, severe (8-10) Stop: 05/24/18 13:08 Last Admin: 05/22/18 10:50 Dose: 2 mg Ondansetron HCl (Zofran Inj) 4 mg IVP Q4H PRN PRN Reason: Nausea/Vomiting Last Admin: 05/22/18 10:50 Dose: 4 mg Pantoprazole Sodium (Protonix Ec Tab) 40 mg PO 0600 [facility] Last Admin: 05/22/18 06:33 Dose: 40 mg Zolpidem Tartrate (Ambien) 5 mg PO HS PRN; Protocol PRN Reason: Insomnia Last Admin: 05/22/18 00:06 Dose: 5 mg - Labs Labs: 05/22/18 06:20 05/22/18 06:20 - Constitutional Appears: Well, No Acute Distress - Head Exam Head Exam: NORMAL INSPECTION - Eye Exam Eye Exam: Normal appearance. absent: Scleral icterus - Neck Exam Neck Exam: Normal Inspection - Respiratory Exam Respiratory Exam: Clear to Ausculation Bilateral, NORMAL BREATHING PATTERN. absent: Rales, Rhonchi, Wheezes, Respiratory Distress - Cardiovascular Exam Cardiovascular Exam: REGULAR RHYTHM, +S1, +S2 - GI/Abdominal Exam GI & Abdominal Exam: Soft, Tenderness, Normal Bowel Sounds. absent: Distended, Firm, Guarding, Rigid, Organomegaly - Neurological Exam Neurological Exam: Awake, Normal Gait, Oriented x3 - Psychiatric Exam Psychiatric exam: Normal Affect, Normal Mood - Skin Skin Exam: Dry, Intact, Normal Color, Warm Assessment and Plan - Assessment and Plan (Free Text) Assessment: Acute Pancreatitis: 3/3 criteria with typical symptoms, lipase >3x ULN and radiographic imaging. Trigger likely related to EtOH as recent consumption with onset of symptoms. Though pt denied large consumption, some patients, especially females, can be sensitive to EtOH that could produced pancreatitis and hepatitis. Furthermore, patient can always be under reporting consumption habits (she reported drinking just prior to admission to medicine team, but told this author that she drank 3 weeks ago and none since when her mother was present). TGs not significantly elevate to be TG-induced. Acute Hepatitis: Likely EtOH induced given pattern AST/ALT and as well as correlating radiographic studies and concomitant pancreatitis. Viral Hepatitis ruled out. Plan: -continue diet as tolerated -pain control as per primary care -continue IV fluids -advise to avoid ETOH -start carafate TID -will send Igg4 -neg cholelithiasis -TG slight elevated, likely not the cause D/w Dr. Renee
[2018-05-22] MEDS ORDERED: Simethicone 80 mg Chewtab PO PRN (15:28)
--- NOTE | 2018-05-22 15:49 | CP.PCM.PN ---
<Tad Upton - Last Filed: 05/22/18 17:01> Subjective - Date & Time of Evaluation Date of Evaluation: 05/22/18 Time of Evaluation: 10:10 - Subjective Subjective: Pt seen and examined at bedside. States she had episode of vomiting yesterday afternoon after eating. States she was only able to tolerate hot water, due to having sharp pains with other clear liquids, and had episode of sharp epigastric pain overnight. On morphine 2 mg q 4 h PRN, requesting it routinely as per RN. Rates pain as 8/10 this am, localized to epigastrium. Objective - Vital Signs/Intake and Output Vital Signs (last 24 hours): Temp Pulse Resp BP Pulse Ox 98.2 F 83 20 140/89 98 05/22/18 06:00 05/22/18 09:56 05/22/18 06:00 05/22/18 09:56 05/22/18 06:00 Intake and Output: 05/22/18 05/22/18 06:59 18:59 Intake Total 360 Balance 360 - Medications Medications: Current Medications Alprazolam (Xanax) 1 mg PO BID PRN; Protocol PRN Reason: Anxiety Last Admin: 05/21/18 09:33 Dose: 1 mg Amlodipine Besylate (Norvasc) 10 mg PO DAILY [facility] Last Admin: 05/22/18 09:55 Dose: 10 mg Chlorthalidone (Hygroton) 25 mg PO DAILY [facility] Last Admin: 05/22/18 09:56 Dose: 25 mg Clonidine HCl (Catapres) 0.1 mg PO Q12 [facility] Last Admin: 05/22/18 09:56 Dose: 0.1 mg Ergocalciferol (Drisdol 50,000 Intl Units Cap) 1 cap PO Q7D [facility] Last Admin: 05/22/18 09:55 Dose: 1 cap Folic Acid (Folic Acid) 1 mg PO DAILY [facility] Last Admin: 05/22/18 09:56 Dose: 1 mg Hydralazine HCl (Apresoline) 50 mg PO BID [facility] Last Admin: 05/22/18 09:56 Dose: 50 mg Hydralazine HCl (Apresoline) 25 mg PO Q4 PRN PRN Reason: Systolic Blood Pressure Last Admin: 05/21/18 05:47 Dose: 25 mg Lactated Ringer's (Lactated Ringer's) 1,000 mls @ 100 mls/hr IV .Q10H [facility] Last Admin: 05/22/18 09:57 Dose: 100 mls/hr Lisinopril (Zestril) 40 mg PO DAILY [facility] Last Admin: 05/22/18 09:56 Dose: 40 mg Lorazepam (Ativan) 1 mg IVP Q6H PRN; Protocol PRN Reason: Anxiety Last Admin: 05/22/18 06:45 Dose: 1 mg Metoprolol Tartrate (Lopressor) 100 mg PO BID [facility] Last Admin: 05/22/18 09:56 Dose: 100 mg Morphine Sulfate (Morphine) 2 mg IVP Q4H PRN PRN Reason: Pain, severe (8-10) Stop: 05/24/18 13:08 Last Admin: 05/22/18 14:29 Dose: 2 mg Ondansetron HCl (Zofran Inj) 4 mg IVP Q4H PRN PRN Reason: Nausea/Vomiting Last Admin: 05/22/18 10:50 Dose: 4 mg Pantoprazole Sodium (Protonix Ec Tab) 40 mg PO 0600 [facility] Last Admin: 05/22/18 06:33 Dose: 40 mg Simethicone (Mylicon Chew Tab) 80 mg PO PCHS PRN PRN Reason: GI distress Sucralfate (Carafate Oral Susp) 1 gm PO 0630,1130,1630 [facility] Zolpidem Tartrate (Ambien) 5 mg PO HS PRN; Protocol PRN Reason: Insomnia Last Admin: 05/22/18 00:06 Dose: 5 mg - Labs Labs: 05/22/18 06:20 05/22/18 06:20 - Constitutional Appears: Non-toxic, No Acute Distress - Head Exam Head Exam: ATRAUMATIC, NORMAL INSPECTION, NORMOCEPHALIC - Eye Exam Eye Exam: EOMI, Normal appearance, PERRL - ENT Exam ENT Exam: Mucous Membranes Moist, Normal Oropharynx - Neck Exam Neck Exam: Full ROM, Normal Inspection - Respiratory Exam Respiratory Exam: Clear to Ausculation Bilateral, NORMAL BREATHING PATTERN - Cardiovascular Exam Cardiovascular Exam: REGULAR RHYTHM, +S1, +S2 - GI/Abdominal Exam GI & Abdominal Exam: Soft Additional comments: Tenderness to mild palpation in epigastric region, normal bowel sounds x4 - Extremities Exam Extremities Exam: Full ROM, Normal Capillary Refill, Normal Inspection - Back Exam Back Exam: NORMAL INSPECTION - Neurological Exam Neurological Exam: Alert, Awake, Oriented x3 - Psychiatric Exam Psychiatric exam: Normal Affect, Normal Mood - Skin Skin Exam: Dry, Intact, Normal Color, Warm Assessment and Plan - Assessment and Plan (Free Text) Assessment: 33 year old female with a significant past medical history of alcohol-induced pancreatitis, hypertension, and iron deficiency anemia, who presented on 05/18/18 with abdominal pain and was subsequently found to have pancreatitis. Plan: Acute Pancreatitis Likely the etiology for presenting pain, however r/o cholecystitis, acute hepatitis given RUQ abdominal pain Lipase elevated, and CTAP - Mild pancreatitis w/o nec pancreatis on admission, and symptomatic so 3/3 criteria Cont w/ liquid diet, advance as tolerated Cont LR @100ml/hr Cont pain control with taper morphine to 2 mg q 4h GI Consulted, f/u recs, recommend starting carafate Pt c/o gas pain today, responded well to simethicone Cont strict IxOs Hx HTN HD stable, continue to trend vitals Cont Clonidine 0.1 BID Metoprolol 100 BID Cont Hydralazine 50 BID Cont Hydralazine PRN Lisinopril 40 mg daily Norvasc 10 mg daily Nephro added chlorthalidone 25 mg PO daily EKG negative Trops negative Nephro consulted for resistant hypertension, f/u recs, w/u pending for 2/2 causes of HTN Renal artery doppler: b/l patent renal arteries Normocytic anemia Likely 2/2 chronic alcohol abuse HD stable No active bleeding Iron panel: elevated iron; TIBC wnl, Ferritin wnl Folate/B12 wnl Continue to monitor Transaminitis In the setting of alcohol abuse with 2:1 ratio likely most likely etiology vs obesity/fatty liver Trend LFTs CT showed fatty liver Abd US showed hepatic steatosis vs infectious/inflammatory etiology Hepatitis panel NEGATIVE Avoid hepatotoxic meds Pt counseled on EtOH abuse Hx Anxiety Cont home Xanax 1mg BID Started ativan q6 prn Psych consulted, f/u recs GI/DVT Ppx: SCD/ Protonix Dispo: continue management for acute pancreatitis at this time, multiple consultants following, their recs are appreciated. Pt is to follow up w/ PMD Dr. Vega Santos once stable for discharge. Patient was seen and examined and case was discussed at length with attending Dr. Jm Upton DO PGY-1, Instructor Of Sociology Pager #[phone] <Arlene Oneal - Last Filed: 05/22/18 17:12> Objective - Vital Signs/Intake and Output Vital Signs (last 24 hours): Temp Pulse Resp BP Pulse Ox 99.1 F 79 20 137/88 97 05/22/18 16:08 05/22/18 16:08 05/22/18 16:08 05/22/18 16:08 05/22/18 16:08 Intake and Output: 05/22/18 05/22/18 06:59 18:59 Intake Total 360 Balance 360 - Medications Medications: Current Medications Alprazolam (Xanax) 1 mg PO BID PRN; Protocol PRN Reason: Anxiety Last Admin: 05/21/18 09:33 Dose: 1 mg Amlodipine Besylate (Norvasc) 10 mg PO DAILY [facility] Last Admin: 05/22/18 09:55 Dose: 10 mg Chlorthalidone (Hygroton) 25 mg PO DAILY [facility] Last Admin: 05/22/18 09:56 Dose: 25 mg Clonidine HCl (Catapres) 0.1 mg PO Q12 [facility] Last Admin: 05/22/18 09:56 Dose: 0.1 mg Ergocalciferol (Drisdol 50,000 Intl Units Cap) 1 cap PO Q7D [facility] Last Admin: 05/22/18 09:55 Dose: 1 cap Folic Acid (Folic Acid) 1 mg PO DAILY [facility] Last Admin: 05/22/18 09:56 Dose: 1 mg Hydralazine HCl (Apresoline) 50 mg PO BID [facility] Last Admin: 05/22/18 09:56 Dose: 50 mg Hydralazine HCl (Apresoline) 25 mg PO Q4 PRN PRN Reason: Systolic Blood Pressure Last Admin: 05/21/18 05:47 Dose: 25 mg Lactated Ringer's (Lactated Ringer's) 1,000 mls @ 100 mls/hr IV .Q10H [facility] Last Admin: 05/22/18 09:57 Dose: 100 mls/hr Lisinopril (Zestril) 40 mg PO DAILY [facility] Last Admin: 05/22/18 09:56 Dose: 40 mg Lorazepam (Ativan) 1 mg IVP Q6H PRN; Protocol PRN Reason: Anxiety Last Admin: 05/22/18 16:10 Dose: 1 mg Metoprolol Tartrate (Lopressor) 100 mg PO BID [facility] Last Admin: 05/22/18 09:56 Dose: 100 mg Morphine Sulfate (Morphine) 1 mg IVP Q4H PRN PRN Reason: Pain, severe (8-10) Stop: 05/24/18 13:08 Ondansetron HCl (Zofran Inj) 4 mg IVP Q4H PRN PRN Reason: Nausea/Vomiting Last Admin: 05/22/18 10:50 Dose: 4 mg Pantoprazole Sodium (Protonix Ec Tab) 40 mg PO 0600 [facility] Last Admin: 05/22/18 06:33 Dose: 40 mg Simethicone (Mylicon Chew Tab) 80 mg PO PCHS PRN PRN Reason: GI distress Last Admin: 05/22/18 16:10 Dose: 80 mg Sucralfate (Carafate Oral Susp) 1 gm PO 0630,1130,1630 [facility] Last Admin: 05/22/18 16:10 Dose: 1 gm Zolpidem Tartrate (Ambien) 5 mg PO HS PRN; Protocol PRN Reason: Insomnia Last Admin: 05/22/18 00:06 Dose: 5 mg - Labs Labs: 05/22/18 06:20 05/22/18 06:20 Attending/Attestation - Attestation I have personally seen and examined this patient.: Yes I have fully participated in the care of the patient.: Yes I have reviewed all pertinent clinical information, including history, physical exam and plan: Yes Notes (Text): 05/22/18 17:10 33 year old female with past medical history of alcohol abuse, anemia and pancreatitis presented with complaint of abdominal pain secondary to acute pancreatitis. Elevated lipase and LFTs on labs. CT abd/pelvis showed mild pancreatitis without gallstones. Hepatitis panel is negative. Continue to monitor LFTs. GI is following. Continue with liquid diet as tolerated. Will begin to taper morphine prn and ativan prn. She was counselled on alcohol abstinence. Nephrology is following for hypertension. Possible d/c planning 24-48 hrs if symptoms continue to improve. Arlene Oneal MD Hospitalist.
[2018-05-22] MEDS: Sucralfate 1 gm/10 ml Oral Susp UD PO SCH (16:10)
[2018-05-22] MEDS ORDERED: Morphine 2 mg/ml ISec IVP ONE (23:53)
[2018-05-23] MEDS: Pantoprazole 40 mg EC Tab PO SCH (06:12)
[2018-05-23] MEDS: Sucralfate 1 gm/10 ml Oral Susp UD PO SCH ×3 (06:12→17:06)
[2018-05-23] MEDS: Morphine 2 mg/ml ISec IVP PRN ×2 (06:20→10:21)
[2018-05-23] MEDS: Lactated Ringer's 1,000 ML IV SCH (06:24)
[2018-05-23 06:54] LABS: BASO # 0.05 K/mm3 (0.0-2.0); BASO % 0.4 % (0.0-3.0); EOS # 0.2 (0.0-0.7); EOS % 1.2 % (1.5-5.0); GRAN # 11.28 (1.4-6.5); GRAN % 81.3 % (50.0-68.0); HEMOGLOBIN 11.1 g/dL (12.0-16.0); LYMPH # 1.6 (1.2-3.4); LYMPH % 11.6 % (22.0-35.0); MEAN CELL VOLUME 96.6 fl (80.0-105.0); MEAN CORPUSCULAR HEMOGLOBIN 31.7 pg (25.0-35.0); MEAN CORPUSCULAR HGB CONC 32.8 g/dl (31.0-37.0); MEAN PLATELET VOLUME 9.3 fl (7.0-11.0); MONO # 0.8 (0.1-0.6); MONO % 5.5 % (1.0-6.0); RBC 3.5 10^6/uL (3.5-6.1); WHITE BLOOD COUNT 13.9 10^3/ul (4.5-11.0)
[2018-05-23 07:03] LABS: ALB/GLOB RATIO 1.1 (1.1-1.8); ALBUMIN 4.6 g/dL (3.0-4.8); ALT/SGPT 101 U/L (7-56); AST/SGOT 280 U/L (14-36); BLOOD UREA NITROGEN 5 mg/dL (7-21); CALCIUM 9.7 mg/dL (8.4-10.5); GFR AFRICAN-AMERICAN > 60; GFR NON-AFRICAN AMERICAN > 60; LIPASE 320 U/L (23-300)
--- NOTE | 2018-05-23 09:39 | US ---
PROCEDURE: Bilateral renal artery duplex ultrasound. CLINICAL HISTORY: Renal artery stenosis. Uncontrolled hypertension. Evaluate for renovascular hypertension. PHYSICIAN(S): Ralph Flannery M.D. TECHNIQUE: Duplex sonography with color-flow Doppler was used to evaluate the visualized segments of the main renal arteries. The patient was evaluated in a fasting state. Imaging in a supine and decubitus position was performed. Limited evaluation of the arcuate waveforms and resistive indices were performed. FINDINGS: The overall quality of the study is adequate. The kidneys are normal in size, shape, and location. The right kidney measures 13.0cm in length and the left kidney measures 13.4cm in length. No solid renal masses, abnormal calcifications, or hydronephrosis is seen. The main right renal artery is fairly well visualized from the aorta to the hilum. The peak systolic velocity in the right main renal artery is 98 cm/sec. This is consistent with a 0 to 49% stenosis in the main right renal artery. The arcuate waveforms are normal. The resistive index is normal. The main left renal artery is also fairly well seen from its origin to the renal hilum. The peak systolic velocity in the main left renal artery is 95cm/sec. This corresponds to a 0 to 49% stenosis in the main left renal artery. The arcuate waveforms and resistive indices are normal. IMPRESSION: 1. The main renal arteries are fairly well visualized. 2. No sonographically significant stenosis is identified. 3. The kidneys are normal and symmetric in size. There are no solid renal masses, abnormal calcifications or hydronephrosis noted.
--- NOTE | 2018-05-23 15:39 | CP.PCM.PN ---
Subjective - Date & Time of Evaluation Date of Evaluation: 05/23/18 Time of Evaluation: 15:37 - Subjective Subjective: Nephrology Consultation Note: Assessment: Stable uncontrolled severe HTN likely trigger as pain and alcohol related acute pancreatitis hypertension (3 years), obesity, anxiety and work related stress sedentary lifestyle anemia abnormal LFT microscopic hematuria ? due to menstural periods Plan Hypertension control with meds as ordered. can d/c home with tribenzor 40/10/25 mg 1 tab daily, lopressor 100 bid and hydralazine 50 bid. stop all other bp meds. called pharmacy to verify tribenzor coverage, prescription left with housestaff. pt was educated about complications of HTN including but not limited to CV disease, kidney disease, PVD, stroke she was educated about need for lifestyle modifications, weight loss, exercise and diet control pt was educated to abstain from alcohol completely she was also advised to post-pone plans for until BP better controlled. also cautioned about toxicity of BP meds. p says she doesn't has any plan for soon can d/c IVF since she is on diet started weekly vit D sec HTN work up with renin/donald/metanephrines, SCL-70 ab and renal artery doppler also check for LUIS ANGEL/DNA/c4/c3, Vit D level urine pro/cr Dose meds/antibiotics for normal GFR. Glycemic control, pain control Further work up/management as per primary team pt stable for d/c from renal perspective when planned Thanks for allowing me to participate in care of your patient. Will follow patient with you. Please call if any Qs Dr Alexandro Wing Office: [phone] Chief Complaint; abdomen pain HPI: Pt is a 33 F with hx of hypertension (3 years), obesity, anxiety and work related stress presented with complaints of abdomen pain and found to have alcohol related pancreatitis. renal consult for HTN management Denies OTC/herbal meds or NSAIDs. denies smoking/drugs/tobacco/licorice/ decongestants admits to drinking alcohol but socially although frequency and quantity can vary doesn't exercise. check BP at work often 130-140s admits to missing BP meds dosage due to increased frequency she reported hospital visit 3-4 months ago due to elevated BP reports family hx of HTN father side ROS: Cardiovascular: No chest pain now Pulmonary: No shortness of breath Gastrointestinal: improved abdominal pain but more with eating no nausea/ vomiting. Genitourinary: No pain while urinating. Denies blood in urine. All other negative except as mentioned in HPI Physical Examination: General Appearance: Comfortable, in no acute respiratory distress, co-operative . obese Vitals reviewed and noted as below Head; Atraumatic, normocephalic ENT: no ulcers no thrush. Tongue is midline. Oropharynx: no rash or ulcers. EYES: Pupils are equal, round and reactive to light accommodation. Eye muscles and extraocular movement intact. Sclera is anicteric. Neck; supple no lymphadenopathy, no thyromegaly or bruit Lungs: Normal respiratory rate/effort. Breath sounds bilateral equal and clear Heart: Normal rate. s1s2 normal. No rub or gallop. Extremities: no edema. No varicose veins Neurological: Patient is alert, awake and oriented to person, place and time. No focal deficit. Strength bilateral appropriate and equal Skin: Warm and dry. Normal turgor. No rash. Palpitation: Normal elasticity for age Abdomen: Abdomen is soft. Bowel sounds +. There is no abdominal tenderness, no guarding/rigidity no organomegaly Psych: normal insight and normal affect/mood MSK: no joint tenderness or swelling. Digits and nails normal, no deformity : kidney or bladder not palpable Labs/imaging reviewed. Past medical history, past surgical history, family history, social history, allergy reviewed and noted as below Family hx: no hx of CKD. Rest non-contributory work up: lipase 5814 hepatitis neg TSAT 67% Ferritin 73 Renal imaging: unremarkable UA 100 protein and blood ++ Objective - Vital Signs/Intake and Output Vital Signs (last 24 hours): Temp Pulse Resp BP Pulse Ox 99.6 F 80 20 124/81 100 05/23/18 08:11 05/23/18 09:48 05/23/18 08:11 05/23/18 09:49 05/23/18 08:11 Intake and Output: 05/23/18 05/23/18 06:59 18:59 Intake Total 2275 Balance 2275 - Medications Medications: Current Medications Alprazolam (Xanax) 1 mg PO BID PRN; Protocol PRN Reason: Anxiety Last Admin: 05/21/18 09:33 Dose: 1 mg Amlodipine Besylate (Norvasc) 10 mg PO DAILY [facility] Last Admin: 05/23/18 09:49 Dose: 10 mg Chlorthalidone (Hygroton) 25 mg PO DAILY [facility] Last Admin: 05/23/18 09:48 Dose: 25 mg Clonidine HCl (Catapres) 0.1 mg PO Q12 PRN PRN Reason: Other Ergocalciferol (Drisdol 50,000 Intl Units Cap) 1 cap PO Q7D [facility] Last Admin: 05/22/18 09:55 Dose: 1 cap Folic Acid (Folic Acid) 1 mg PO DAILY [facility] Last Admin: 05/23/18 09:48 Dose: 1 mg Hydralazine HCl (Apresoline) 50 mg PO BID [facility] Last Admin: 05/23/18 09:46 Dose: 50 mg Lactated Ringer's (Lactated Ringer's) 1,000 mls @ 100 mls/hr IV .Q10H [facility] Last Admin: 05/23/18 06:24 Dose: 100 mls/hr Lisinopril (Zestril) 40 mg PO DAILY [facility] Last Admin: 05/23/18 09:49 Dose: 40 mg Lorazepam (Ativan) 0.5 mg IVP Q6H PRN; Protocol PRN Reason: Anxiety Last Admin: 05/23/18 09:50 Dose: 0.5 mg Metoprolol Tartrate (Lopressor) 100 mg PO BID [facility] Last Admin: 05/23/18 09:48 Dose: 100 mg Ondansetron HCl (Zofran Inj) 4 mg IVP Q4H PRN PRN Reason: Nausea/Vomiting Last Admin: 05/22/18 10:50 Dose: 4 mg Pantoprazole Sodium (Protonix Ec Tab) 40 mg PO 0600 [facility] Last Admin: 05/23/18 06:12 Dose: 40 mg Simethicone (Mylicon Chew Tab) 80 mg PO PCHS PRN PRN Reason: GI distress Last Admin: 05/22/18 16:10 Dose: 80 mg Sucralfate (Carafate Oral Susp) 1 gm PO 0630,1130,1630 [facility] Last Admin: 05/23/18 11:48 Dose: 1 gm Tramadol HCl (Ultram) 50 mg PO TID PRN PRN Reason: Pain, severe (8-10) Last Admin: 05/23/18 14:04 Dose: 50 mg Zolpidem Tartrate (Ambien) 5 mg PO HS PRN; Protocol PRN Reason: Insomnia Last Admin: 05/22/18 21:03 Dose: 5 mg - Labs Labs: 05/23/18 06:30 05/23/18 06:30
--- NOTE | 2018-05-23 15:45 | CP.PCM.PN ---
<Medardo Alex - Last Filed: 05/23/18 15:41> Subjective - Date & Time of Evaluation Date of Evaluation: 05/23/18 Time of Evaluation: 09:30 - Subjective Subjective: PGY-4 GI Fellow Prog Note Pt states abd pain mildly improved, though still present. Keeping down clears for now. 5 point ROS negative other than stated above Objective - Vital Signs/Intake and Output Vital Signs (last 24 hours): Temp Pulse Resp BP Pulse Ox 99.6 F 80 20 124/81 100 05/23/18 08:11 05/23/18 09:48 05/23/18 08:11 05/23/18 09:49 05/23/18 08:11 Intake and Output: 05/23/18 05/23/18 06:59 18:59 Intake Total 2275 Balance 2275 - Medications Medications: Current Medications Alprazolam (Xanax) 1 mg PO BID PRN; Protocol PRN Reason: Anxiety Last Admin: 05/21/18 09:33 Dose: 1 mg Amlodipine Besylate (Norvasc) 10 mg PO DAILY [facility] [place] Last Admin: 05/23/18 09:49 Dose: 10 mg Chlorthalidone (Hygroton) 25 mg PO DAILY [facility] [place] Last Admin: 05/23/18 09:48 Dose: 25 mg Clonidine HCl (Catapres) 0.1 mg PO Q12 PRN PRN Reason: Other Ergocalciferol (Drisdol 50,000 Intl Units Cap) 1 cap PO Q7D [facility] [place] Last Admin: 05/22/18 09:55 Dose: 1 cap Folic Acid (Folic Acid) 1 mg PO DAILY [facility] [place] Last Admin: 05/23/18 09:48 Dose: 1 mg Hydralazine HCl (Apresoline) 50 mg PO BID [facility] [place] Last Admin: 05/23/18 09:46 Dose: 50 mg Lactated Ringer's (Lactated Ringer's) 1,000 mls @ 100 mls/hr IV .Q10H [facility] [place] Last Admin: 05/23/18 06:24 Dose: 100 mls/hr Lisinopril (Zestril) 40 mg PO DAILY [facility] [place] Last Admin: 05/23/18 09:49 Dose: 40 mg Lorazepam (Ativan) 0.5 mg IVP Q6H PRN; Protocol PRN Reason: Anxiety Last Admin: 05/23/18 09:50 Dose: 0.5 mg Metoprolol Tartrate (Lopressor) 100 mg PO BID [facility] [place] Last Admin: 05/23/18 09:48 Dose: 100 mg Ondansetron HCl (Zofran Inj) 4 mg IVP Q4H PRN PRN Reason: Nausea/Vomiting Last Admin: 05/22/18 10:50 Dose: 4 mg Pantoprazole Sodium (Protonix Ec Tab) 40 mg PO 0600 [facility] Last Admin: 05/23/18 06:12 Dose: 40 mg Simethicone (Mylicon Chew Tab) 80 mg PO PCHS PRN PRN Reason: GI distress Last Admin: 05/22/18 16:10 Dose: 80 mg Sucralfate (Carafate Oral Susp) 1 gm PO 0630,1130,1630 [facility] Last Admin: 05/23/18 11:48 Dose: 1 gm Tramadol HCl (Ultram) 50 mg PO TID PRN PRN Reason: Pain, severe (8-10) Last Admin: 05/23/18 14:04 Dose: 50 mg Zolpidem Tartrate (Ambien) 5 mg PO HS PRN; Protocol PRN Reason: Insomnia Last Admin: 05/22/18 21:03 Dose: 5 mg - Labs Labs: 05/23/18 06:30 05/23/18 06:30 - Constitutional Appears: Well, Non-toxic - Head Exam Head Exam: ATRAUMATIC, NORMOCEPHALIC - Eye Exam Eye Exam: EOMI. absent: Conjunctival injection, Scleral icterus - Respiratory Exam Respiratory Exam: NORMAL BREATHING PATTERN. absent: Accessory Muscle Use, Prolonged Expiratory Phase - GI/Abdominal Exam GI & Abdominal Exam: Soft, Tenderness (epigastrum w/o guarding). absent: Distended, Guarding, Rigid Assessment and Plan - Assessment and Plan (Free Text) Assessment: Acute Pancreatitis: 3/3 criteria with typical symptoms, lipase >3x ULN and radiographic imaging. Trigger likely related to EtOH as recent consumption with onset of symptoms. Though pt denied large consumption, some patients, especially females, can be sensitive to EtOH that could produced pancreatitis and hepatitis. Furthermore, patient can always be under reporting consumption habits (she reported drinking just prior to admission to medicine team, but told this author that she drank 3 weeks ago and none since when her mother was present). TGs not significantly elevate to be TG-induced. Symptoms slowly improving. Acute Hepatitis: Overall improved. Likely EtOH induced given pattern AST/ALT and as well as correlating radiographic studies and concomitant pancreatitis. Viral Hepatitis ruled out. Plan: Clear liquid diet, advancing to low residue and soft diet Pain Control and IVF per primary team Counseled patient on complete EtOH cessation F/u IgG4 Cont PPI, Carafate Consider MRCP as inpatient should symptoms persist, otherwise plan on as outpatient <James Renee V - Last Filed: 05/23/18 23:41> Objective - Vital Signs/Intake and Output Vital Signs (last 24 hours): Temp Pulse Resp BP Pulse Ox 99.6 F 80 20 124/81 100 05/23/18 08:11 05/23/18 09:48 05/23/18 08:11 05/23/18 09:49 05/23/18 08:11 - Medications Medications: Current Medications Alprazolam (Xanax) 1 mg PO BID PRN; Protocol PRN Reason: Anxiety Last Admin: 05/21/18 09:33 Dose: 1 mg Amlodipine Besylate (Norvasc) 10 mg PO DAILY [facility] [place] Last Admin: 05/23/18 09:49 Dose: 10 mg Chlorthalidone (Hygroton) 25 mg PO DAILY [facility] [place] Last Admin: 05/23/18 09:48 Dose: 25 mg Clonidine HCl (Catapres) 0.1 mg PO Q12 PRN PRN Reason: Other Ergocalciferol (Drisdol 50,000 Intl Units Cap) 1 cap PO Q7D [facility] [place] Last Admin: 05/22/18 09:55 Dose: 1 cap Folic Acid (Folic Acid) 1 mg PO DAILY [facility] [place] Last Admin: 05/23/18 09:48 Dose: 1 mg Hydralazine HCl (Apresoline) 50 mg PO BID [facility] [place] Last Admin: 05/23/18 18:05 Dose: 50 mg Lactated Ringer's (Lactated Ringer's) 1,000 mls @ 100 mls/hr IV .Q10H [facility] [place] Last Admin: 05/23/18 06:24 Dose: 100 mls/hr Lisinopril (Zestril) 40 mg PO DAILY [facility] [place] Last Admin: 05/23/18 09:49 Dose: 40 mg Lorazepam (Ativan) 0.5 mg IVP Q6H PRN; Protocol PRN Reason: Anxiety Last Admin: 05/23/18 09:50 Dose: 0.5 mg Metoprolol Tartrate (Lopressor) 100 mg PO BID [facility] Last Admin: 05/23/18 18:06 Dose: 100 mg Ondansetron HCl (Zofran Inj) 4 mg IVP Q4H PRN PRN Reason: Nausea/Vomiting Last Admin: 05/22/18 10:50 Dose: 4 mg Pantoprazole Sodium (Protonix Ec Tab) 40 mg PO 0600 [facility] Last Admin: 05/23/18 06:12 Dose: 40 mg Simethicone (Mylicon Chew Tab) 80 mg PO PCHS PRN PRN Reason: GI distress Last Admin: 05/22/18 16:10 Dose: 80 mg Sucralfate (Carafate Oral Susp) 1 gm PO 0630,1130,1630 [facility] [place] Last Admin: 05/23/18 17:06 Dose: 1 gm Tramadol HCl (Ultram) 50 mg PO TID PRN PRN Reason: Pain, severe (8-10) Last Admin: 05/23/18 18:07 Dose: 50 mg Zolpidem Tartrate (Ambien) 5 mg PO HS PRN; Protocol PRN Reason: Insomnia Last Admin: 05/22/18 21:03 Dose: 5 mg - Labs Labs: 05/23/18 06:30 05/23/18 06:30 Attending/Attestation - Attestation I have personally seen and examined this patient.: Yes I have fully participated in the care of the patient.: Yes I have reviewed all pertinent clinical information, including history, physical exam and plan: Yes Notes (Text): This is an addendum to GI progress report dictated by the GI Fellow.The patient was seen and examined earlier. Medical records, lab studies, imagings were reviewed. Last 24 hours events reviewed. Agreed with the above treatment plan as outlined in GI Fellow 's notes the with the addition of the following on examination there was to the epigastric tenderness On clear liquid diet Slowly advance the diet to low-fat soft diet If the Patient continues to show significant tendernes, unable tolerate the diet will consider MRI asinpatient as an inpatient advised to follow up with her GI as an outpatient post discharge for further evaluation 05/23/18 23:37
--- NOTE | 2018-05-23 16:38 | CP.PCM.PN ---
<Lito Blas - Last Filed: 05/23/18 16:40> Subjective - Date & Time of Evaluation Date of Evaluation: 05/23/18 Time of Evaluation: 16:33 - Subjective Subjective: LITO BLAS DO - PGY 1 IM RESIDENT - MEDICINE PROGRESS NOTE Pt. was seen and examined this AM; overnight patient required x1 dose PRN Morphine 2mg. Patient still has some abdominal pain at this time however it is much more improved compared to day prior. Patient clinically stable tolerating clear liquid diet well. No other complaints reported at this time. Pt. denies any chest pain, palpitations, gomez, dizzness, blurry vision, sob, cough , abd pain , nvdc, numbness/ tingling, focal weakness. Objective - Vital Signs/Intake and Output Vital Signs (last 24 hours): Temp Pulse Resp BP Pulse Ox 99.6 F 80 20 124/81 100 05/23/18 08:11 05/23/18 09:48 05/23/18 08:11 05/23/18 09:49 05/23/18 08:11 Intake and Output: 05/23/18 05/23/18 06:59 18:59 Intake Total 2275 Balance 2275 - Medications Medications: Current Medications Alprazolam (Xanax) 1 mg PO BID PRN; Protocol PRN Reason: Anxiety Last Admin: 05/21/18 09:33 Dose: 1 mg Amlodipine Besylate (Norvasc) 10 mg PO DAILY [facility] Last Admin: 05/23/18 09:49 Dose: 10 mg Chlorthalidone (Hygroton) 25 mg PO DAILY [facility] Last Admin: 05/23/18 09:48 Dose: 25 mg Clonidine HCl (Catapres) 0.1 mg PO Q12 PRN PRN Reason: Other Ergocalciferol (Drisdol 50,000 Intl Units Cap) 1 cap PO Q7D [facility] Last Admin: 05/22/18 09:55 Dose: 1 cap Folic Acid (Folic Acid) 1 mg PO DAILY [facility] Last Admin: 05/23/18 09:48 Dose: 1 mg Hydralazine HCl (Apresoline) 50 mg PO BID [facility] Last Admin: 05/23/18 09:46 Dose: 50 mg Lactated Ringer's (Lactated Ringer's) 1,000 mls @ 100 mls/hr IV .Q10H [facility] Last Admin: 05/23/18 06:24 Dose: 100 mls/hr Lisinopril (Zestril) 40 mg PO DAILY [facility] Last Admin: 05/23/18 09:49 Dose: 40 mg Lorazepam (Ativan) 0.5 mg IVP Q6H PRN; Protocol PRN Reason: Anxiety Last Admin: 05/23/18 09:50 Dose: 0.5 mg Metoprolol Tartrate (Lopressor) 100 mg PO BID [facility] Last Admin: 05/23/18 09:48 Dose: 100 mg Ondansetron HCl (Zofran Inj) 4 mg IVP Q4H PRN PRN Reason: Nausea/Vomiting Last Admin: 05/22/18 10:50 Dose: 4 mg Pantoprazole Sodium (Protonix Ec Tab) 40 mg PO 0600 [facility] Last Admin: 05/23/18 06:12 Dose: 40 mg Simethicone (Mylicon Chew Tab) 80 mg PO PCHS PRN PRN Reason: GI distress Last Admin: 05/22/18 16:10 Dose: 80 mg Sucralfate (Carafate Oral Susp) 1 gm PO 0630,1130,1630 [facility] Last Admin: 05/23/18 11:48 Dose: 1 gm Tramadol HCl (Ultram) 50 mg PO TID PRN PRN Reason: Pain, severe (8-10) Last Admin: 05/23/18 14:04 Dose: 50 mg Zolpidem Tartrate (Ambien) 5 mg PO HS PRN; Protocol PRN Reason: Insomnia Last Admin: 05/22/18 21:03 Dose: 5 mg - Labs Labs: 05/23/18 06:30 05/23/18 06:30 - Constitutional Appears: Non-toxic, No Acute Distress - Head Exam Head Exam: ATRAUMATIC, NORMAL INSPECTION, NORMOCEPHALIC - Eye Exam Eye Exam: EOMI, Normal appearance, PERRL - ENT Exam ENT Exam: Mucous Membranes Moist, Normal Oropharynx - Neck Exam Neck Exam: Full ROM, Normal Inspection - Respiratory Exam Respiratory Exam: Clear to Ausculation Bilateral, NORMAL BREATHING PATTERN - Cardiovascular Exam Cardiovascular Exam: REGULAR RHYTHM, +S1, +S2 - GI/Abdominal Exam GI & Abdominal Exam: Soft Additional comments: Tenderness to mild palpation in epigastric region, normal bowel sounds x4 - Extremities Exam Extremities Exam: Full ROM, Normal Capillary Refill, Normal Inspection - Back Exam Back Exam: NORMAL INSPECTION - Neurological Exam Neurological Exam: Alert, Awake, Oriented x3 - Psychiatric Exam Psychiatric exam: Normal Affect, Normal Mood - Skin Skin Exam: Dry, Intact, Normal Color, Warm Assessment and Plan - Assessment and Plan (Free Text) Assessment: 33 year old female with a significant past medical history of alcohol-induced pancreatitis, hypertension, and iron deficiency anemia, who presented on 05/18/18 with abdominal pain and was subsequently found to have pancreatitis. Plan: Acute Pancreatitis Likely the etiology for presenting pain, however r/o cholecystitis, acute hepatitis given RUQ abdominal pain Lipase elevated, and CTAP - Mild pancreatitis w/o nec pancreatis on admission, and symptomatic so 3/3 criteria Pt. is currently on Cont LR @100ml/hr Pain control w/ Tramadol 50 TID GI Consulted, recs appreciated Cont strict IxOs Hx HTN HD stable Amlodipine 10 QD Chlorthalidone 25 QD Cont Hydralazine 50 BID Cont Clonidine 0.1 Q12 PRN Cont Lisinopril 40 QD Cont Metoprolol 100 BID EKG negative Trops negative Nephro consulted for resistant hypertension, f/u recs, w/u pending for 2/2 causes of HTN Renal artery doppler: b/l patent renal arteries Normocytic anemia Likely 2/2 chronic alcohol abuse HD stable No active bleeding Iron panel: elevated iron; TIBC wnl Firritin wnl Folate/ B12 wnl Continue to monitor Transaminitis In the setting of alcohol abuse with 2:1 ratio likely most likely etiology vs obesity/fatty liver CT showed fatty liver Abd US showed hepatic steatosis vs infectious/inflammatory etiology Hepatitis panel NEGATIVE Avoid hepatotoxic meds Counseled on EtOH abuse Hx Anxiety Cont home Xanax 1mg BID Started ativan q6 prn Psych consulted GI/DVT Ppx: SCD/ Protonix Dispo: continue management for acute pancreatitis at this time, multiple consultants following, their recs are appreciated. Pt is to follow up w/ PMD Dr. Vega Santos once stable for discharge. Patient was seen and examined and case was discussed at length with attending Dr. Kaitlin Blas DO - PGY1 IM RESIDENT - PAGER [phone] <Марина Madrigal - Last Filed: 05/24/18 17:22> Objective - Vital Signs/Intake and Output Vital Signs (last 24 hours): Temp Pulse Resp BP Pulse Ox 98 F 84 20 133/84 96 05/24/18 07:35 05/24/18 09:58 05/24/18 07:35 05/24/18 09:58 05/24/18 07:35 Intake and Output: 05/24/18 05/24/18 06:59 18:59 Intake Total 1320 925 Balance 1320 925 - Labs Labs: 05/24/18 06:30 05/24/18 06:30 Attending/Attestation - Attestation I have personally seen and examined this patient.: Yes I have fully participated in the care of the patient.: Yes I have reviewed all pertinent clinical information, including history, physical exam and plan: Yes Notes (Text): 05/24/18 17:17 Medical record note made by the resident after discussion with my direction and input after the patient was personally seen and examined by me. I have reviewed the chart and agree that the record accurately reflects by personal performance of the history, physical exam, data review, and medical decision-making, in the course for the patient. I have also personally directed the plan of care. 33 year old female with past medical history of alcohol abuse, anemia and pancreatitis presented with complaint of abdominal pain secondary to acute pancreatitis and elevated LFT. Hepatitis panel is negative.There is no evidence of gall stone. Patient abdominal pain is improved, we will advance diet to soft diet, will switch to oral pain medications. Management plan was discussed in detail with patient. Education was provided.
[2018-05-23] MEDS ORDERED: Morphine 2 mg/ml ISec IVP STA (21:51)
[2018-05-24] MEDS: Lactated Ringer's 1,000 ML IV SCH (05:20)
[2018-05-24] MEDS: Pantoprazole 40 mg EC Tab PO SCH (05:20)
[2018-05-24] MEDS: Sucralfate 1 gm/10 ml Oral Susp UD PO SCH ×2 (05:29→12:10)
--- NOTE | 2018-05-24 06:53 | CP.PCM.DIS ---
<Hank Blas - Last Filed: 05/24/18 19:28> Provider - Provider Date of Admission: 05/18/18 17:51 Attending physician: Марина Madrigal MD Primary care physician: JERARDO Crisostomo Consults: GI - Dr. Renee Nephro - Dr. Wing Psych - Dr. Bower Time Spent in preparation of Discharge (in minutes): 40 Diagnosis - Discharge Diagnosis (1) Acute pancreatitis Status: Acute Priority: High (2) Hepatitis Status: Acute Priority: High (3) Hypertension Status: Acute Priority: High (4) Generalized anxiety disorder Status: Chronic Priority: Medium (5) Normocytic anemia Status: Chronic Priority: Low Hospital Course - Lab Results Lab Results: Most Recent Lab Values WBC 13.9 10^3/ul (4.5-11.0) H 05/23/18 06:30 RBC 3.50 10^6/uL (3.5-6.1) 05/23/18 06:30 Hgb 11.1 g/dL (12.0-16.0) L 05/23/18 06:30 Hct 33.8 % (36.0-48.0) L 05/23/18 06:30 MCV 96.6 fl (80.0-105.0) 05/23/18 06:30 MCH 31.7 pg (25.0-35.0) 05/23/18 06:30 MCHC 32.8 g/dl (31.0-37.0) 05/23/18 06:30 RDW 15.0 % (11.5-14.5) H 05/23/18 06:30 Plt Count 395 10^3/uL (120.0-450.0) 05/23/18 06:30 MPV 9.3 fl (7.0-11.0) 05/23/18 06:30 Gran % 81.3 % (50.0-68.0) H 05/23/18 06:30 Lymph % (Auto) 11.6 % (22.0-35.0) L 05/23/18 06:30 Addison % (Auto) 5.5 % (1.0-6.0) 05/23/18 06:30 Eos % (Auto) 1.2 % (1.5-5.0) L 05/23/18 06:30 Baso % (Auto) 0.4 % (0.0-3.0) 05/23/18 06:30 Gran # 11.28 (1.4-6.5) H 05/23/18 06:30 Lymph # (Auto) 1.6 (1.2-3.4) 05/23/18 06:30 Addison # (Auto) 0.8 (0.1-0.6) H 05/23/18 06:30 Eos # (Auto) 0.2 (0.0-0.7) 05/23/18 06:30 Baso # (Auto) 0.05 K/mm3 (0.0-2.0) 05/23/18 06:30 Sodium 139 mmol/L (132-148) 05/23/18 06:30 Potassium 3.8 mmol/L (3.6-5.0) 05/23/18 06:30 Chloride 96 mmol/L (98-107) L 05/23/18 06:30 Carbon Dioxide 25 mmol/L (21-33) 05/23/18 06:30 Anion Gap 22 (10-20) H 05/23/18 06:30 BUN 5 mg/dL (7-21) L 05/23/18 06:30 Creatinine 0.6 mg/dl (0.7-1.2) L 05/23/18 06:30 Est GFR ( Amer) > 60 05/23/18 06:30 Est GFR (Non-Af Amer) > 60 05/23/18 06:30 Random Glucose 99 mg/dL (70-110) 05/23/18 06:30 Calcium 9.7 mg/dL (8.4-10.5) 05/23/18 06:30 Phosphorus 3.9 mg/dL (2.5-4.5) 05/21/18 09:30 Magnesium 1.1 mg/dL (1.7-2.2) L 05/21/18 09:30 Iron 229 ug/dL (45-180) H 05/18/18 15:37 TIBC 344 ug/dL (265-497) 05/18/18 15:37 % Saturation 67 % (20-55) H 05/18/18 15:37 Ferritin 73.7 ng/mL 05/18/18 19:42 Total Bilirubin 1.0 mg/dL (0.2-1.3) 05/23/18 06:30 AST 280 U/L (14-36) H D 05/23/18 06:30 ALT 101 U/L (7-56) H 05/23/18 06:30 Alkaline Phosphatase 177 U/L (38-126) H 05/23/18 06:30 Lactate Dehydrogenase 535 U/L (333-699) 05/19/18 06:00 Total Creatine Kinase 100 U/L (35-230) 05/19/18 06:00 Troponin I < 0.01 ng/mL 05/20/18 08:30 Total Protein 8.8 g/dL (5.8-8.3) H 05/23/18 06:30 Albumin 4.6 g/dL (3.0-4.8) 05/23/18 06:30 Globulin 4.2 gm/dL 05/23/18 06:30 Albumin/Globulin Ratio 1.1 (1.1-1.8) 05/23/18 06:30 Triglycerides 231 mg/dL (35-160) H 05/18/18 15:37 Cholesterol 263 mg/dL (130-200) H 05/18/18 15:37 LDL Cholesterol Direct 204 mg/dL (0-129) H 05/18/18 15:37 HDL Cholesterol 27 mg/dL (29-60) L 05/18/18 15:37 Lipase 320 U/L (23-300) H 05/23/18 06:30 Vitamin B12 400 pg/mL (239-931) 05/18/18 19:42 25-OH Vitamin D Total < 12.8 NG/ML (30.0-100.0) L 05/21/18 09:30 Folate > 20.0 ng/mL 05/18/18 19:42 Urine Color Yellow (YELLOW) 05/18/18 15:07 Urine Appearance Cloudy (CLEAR) 05/18/18 15:07 Urine pH 6.5 (4.7-8.0) 05/18/18 15:07 Ur Specific [place] 1.020 (1.005-1.035) 05/18/18 15:07 Urine Protein 100 mg/dL (<30 mg/dL) H 05/18/18 15:07 Urine Glucose (UA) Negative mg/dL (NEGATIVE) 05/18/18 15:07 Urine Ketones Trace mg/dL (NEGATIVE) H 05/18/18 15:07 Urine Blood Large (NEGATIVE) H 05/18/18 15:07 Urine Nitrate Negative (NEGATIVE) 05/18/18 15:07 Urine Bilirubin Small (NEGATIVE) H 05/18/18 15:07 Urine Urobilinogen 1.0 E.U./dL (<1 E.U./dL) H 05/18/18 15:07 Ur Leukocyte Esterase Trace Naomi/uL (NEGATIVE) H 05/18/18 15:07 Urine RBC Tntc /hpf (0-2) 05/18/18 15:07 Urine WBC 10 - 15 /hpf (0-6) 05/18/18 15:07 Ur Epithelial Cells 10 - 12 /hpf (0-5) 05/18/18 15:07 Urine Bacteria Mod (NEG) 05/18/18 15:07 Urine HCG, Qual Negative (NEGATIVE) 05/18/18 15:07 Urine Opiates Screen Negative (NEGATIVE) 05/18/18 17:57 Urine Methadone Screen Negative (NEGATIVE) 05/18/18 17:57 Ur Barbiturates Screen Negative (NEGATIVE) 05/18/18 17:57 Ur Phencyclidine Scrn Negative (NEGATIVE) 05/18/18 17:57 Ur Amphetamines Screen Negative (NEGATIVE) 05/18/18 17:57 U Benzodiazepines Scrn Positive (NEGATIVE) H 05/18/18 17:57 U Oth Cocaine Metabols Negative (NEGATIVE) 05/18/18 17:57 U Cannabinoids Screen Negative (NEGATIVE) 05/18/18 17:57 Alcohol, Quantitative < 10 mg/dL (0-10) 05/18/18 15:37 Complement C3 164.0 mg/dL (88.0-165.0) 05/21/18 09:30 Complement C4 44.5 mg/dL (14.0-44.0) H 05/21/18 09:30 Hepatitis A IgM Ab Negative (NEGATIVE) 05/18/18 19:42 Hep Bs Antigen Negative (NEGATIVE) 05/18/18 19:42 Hep B Core IgM Ab Negative (NEGATIVE) 05/18/18 19:42 Hepatitis C Antibody Negative (NEGATIVE) 05/18/18 19:42 - Hospital Course Hospital Course: 33 year old female with a past medical history of pancreatitis 2/2 to alcohol use (2017), iron deficiency anemia, anxiety, and hypertension presented to the ED on 05/18/18 for sharp epigastric pain. Initial labs revealed elevated lipase and LFTs. Abdominal CT showed signs of mild pancreatitis, hepatomegaly, and hepatic steatosis. Patient was admitted for acute pancreatitis; treated with IV lactated ringers, NPO, and pain control. Consulted GI on 05/18. GI agreed with treatment plan and also recommended Hepatitis work-up titers which were negative. 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 She was educated on alcohol cessation and lifestyle modification multiple times throughout hospital admission. Patient reported increased anxiety shortly after admission and was placed on Xanax. On 05/20 patient began having c/o SOB and CP; EKG and Troponins were found to be negative; Consulted Psych on 05/20, and symptoms found to most likely be panic attacks. Dr. Deanna Bower recommended continuation of current treatment plan. Throughout stay patient also required PRN ativan. Patients blood pressure was elevated during admission with SBP range from 140- 188. Nephrology consulted on 05/20. Dr. Alexandro Wing ordered bilateral renal artery duplex US which showed no evidence of renal artery stenosis, hydronephrosis, masses, or nephrolithiasis. Her BP was managed with combination therapy of Lisinopril, metoprolol, clonidine, hydralazine, chlorthalidone, and amlodipine. Dr. Wing educated patient on lifestyle modification and agreed with current treatment plan. Nephrology recommends discharging patient w/ Tribenzor + Metorpol + Hydralazine. Patient is to be discharged today 05/24, she was evaluated this AM prior to discharge, and no complaints at time of evaluation stated improvement in abdominal pain from day prior w/ meals; no nausea or vomiting associated w/ PO intake however does complain of a dull epigastric pain which was to be expected as per GI. Patient was advised to follow a soft diet control. She was advised to not drive while taking her tramadol. She will need to follow up in one week to monitor her LFTs. She will also follow up with GI. Discharge instructions were explained to the patient, and all questions were answered and the patient is agreeable with this plan. - Date & Time of H&P Date of H&P: 05/18/18 Time of H&P: 19:27 Discharge Exam - Head Exam Head Exam: ATRAUMATIC, NORMOCEPHALIC - Eye Exam Eye Exam: EOMI, Normal appearance. absent: Scleral icterus - ENT Exam ENT Exam: Mucous Membranes Moist - Respiratory Exam Respiratory Exam: Clear to PA & Lateral, NORMAL BREATHING PATTERN. absent: Rhonchi, Wheezes - Cardiovascular Exam Cardiovascular Exam: Tachycardia, RRR, +S1, +S2 - GI/Abdominal Exam GI & Abdominal Exam: Normal Bowel Sounds, Tenderness (minimal tenderness w/ involuntary guarding; ) - Extremities Exam Extremities exam: full ROM, pedal pulses present (2+ TP/DP BL) - Back Exam Back exam: absent: CVA tenderness (L), CVA tenderness (R) - Neurological Exam Neurological exam: Alert, CN II-XII Intact, Oriented x3 - Psychiatric Exam Psychiatric exam: Normal Affect, Normal Mood - Skin Skin Exam: Dry, Intact, Warm Discharge Plan - Discharge Medications Prescriptions: ALPRAZolam [Xanax] 1 mg PO BID #8 tab Ergocalciferol [Drisdol 50,000 Intl Units Cap] 1 cap PO QWK 14 Days #2 cap hydrALAZINE [Apresoline] 50 mg PO BID #28 tab Metoprolol Tartrate [Lopressor] 100 mg PO BID 14 Days #28 tab Multivitamin [Daily Jennifer] 1 each PO DAILY #14 tablet Olmesartan/Amlodipin/Hcthiazid [Tribenzor 40-10-25 mg Tablet] 1 each PO DAILY 14 Days #14 tablet Pantoprazole [Protonix EC Tab] 40 mg PO DAILY 14 Days #14 ect Thiamine [Vitamin B1] 100 mg PO DAILY #28 tab traMADol [Ultram] 25 mg PO Q6 PRN #16 tab PRN Reason: Pain, Moderate (4-7) - Follow Up Plan Condition: GUARDED Disposition: HOME/ ROUTINE Patient education suggested?: Yes Instructions: Pancreatitis (DC), Pancreatitis (DC), Hypertension (DC), Hypertension (GEN) Additional Instructions: Please refrain from alcohol consumption as discussed. Please follow up with your primary care physician within 1 week to monitor your liver enzymes as they were elevated during this hospital stay. Please follow up with Gastroneterology for further evaluation as outpatient Maintain to soft diet and continue for two more days. STOP taking the following home medications: clonidine 0.1mg; hydralazine 25mg TID, metoprolol 25 BID, lisinopril 20mg QD for your blood pressures START taking the following: Hydralazine 50mg BID, Metoprolol 100 BID, and TriBenzor 40-10-[address] Wing for your blood pressures as well as protonix for your gastritis Patient advised to avoid driving and operating machinery while taking pain medication. Patient advised to repeat liver function test within 1 week. Continue monitoring blood pressure at home and maintain a diary of readings You will experience abdominal discomfort for a few weeks after discharge; please return to nearest ER if symptoms worsen. <Марина Madrigal - Last Filed: 05/25/18 08:54> Provider - Provider Date of Admission: 05/18/18 17:51 Attending physician: Марина Madrigal MD Hospital Course - Lab Results Lab Results: Most Recent Lab Values WBC 12.5 10^3/ul (4.5-11.0) H 05/24/18 06:30 RBC 3.36 10^6/uL (3.5-6.1) L 05/24/18 06:30 Hgb 10.8 g/dL (12.0-16.0) L 05/24/18 06:30 Hct 32.3 % (36.0-48.0) L 05/24/18 06:30 MCV 96.1 fl (80.0-105.0) 05/24/18 06:30 MCH 32.1 pg (25.0-35.0) 05/24/18 06:30 MCHC 33.4 g/dl (31.0-37.0) 05/24/18 06:30 RDW 14.7 % (11.5-14.5) H 05/24/18 06:30 Plt Count 380 10^3/uL (120.0-450.0) 05/24/18 06:30 MPV 9.6 fl (7.0-11.0) 05/24/18 06:30 Gran % 77.5 % (50.0-68.0) H 05/24/18 06:30 Lymph % (Auto) 13.9 % (22.0-35.0) L 05/24/18 06:30 Addison % (Auto) 6.5 % (1.0-6.0) H 05/24/18 06:30 Eos % (Auto) 1.8 % (1.5-5.0) 05/24/18 06:30 Baso % (Auto) 0.3 % (0.0-3.0) 05/24/18 06:30 Gran # 9.68 (1.4-6.5) H 05/24/18 06:30 Lymph # (Auto) 1.7 (1.2-3.4) 05/24/18 06:30 Addison # (Auto) 0.8 (0.1-0.6) H 05/24/18 06:30 Eos # (Auto) 0.2 (0.0-0.7) 05/24/18 06:30 Baso # (Auto) 0.04 K/mm3 (0.0-2.0) 05/24/18 06:30 Sodium 139 mmol/L (132-148) 05/24/18 06:30 Potassium 3.5 mmol/L (3.6-5.0) L 05/24/18 06:30 Chloride 97 mmol/L (98-107) L 05/24/18 06:30 Carbon Dioxide 26 mmol/L (21-33) 05/24/18 06:30 Anion Gap 20 (10-20) 05/24/18 06:30 BUN 6 mg/dL (7-21) L 05/24/18 06:30 Creatinine 0.6 mg/dl (0.7-1.2) L 05/24/18 06:30 Est GFR ( Amer) > 60 05/24/18 06:30 Est GFR (Non-Af Amer) > 60 05/24/18 06:30 Random Glucose 102 mg/dL (70-110) 05/24/18 06:30 Calcium 9.5 mg/dL (8.4-10.5) 05/24/18 06:30 Phosphorus 3.9 mg/dL (2.5-4.5) 05/21/18 09:30 Magnesium 1.1 mg/dL (1.7-2.2) L 05/21/18 09:30 Iron 229 ug/dL (45-180) H 05/18/18 15:37 TIBC 344 ug/dL (265-497) 05/18/18 15:37 % Saturation 67 % (20-55) H 05/18/18 15:37 Ferritin 73.7 ng/mL 05/18/18 19:42 Total Bilirubin 0.9 mg/dL (0.2-1.3) 05/24/18 06:30 AST 265 U/L (14-36) H 05/24/18 06:30 ALT 115 U/L (7-56) H 05/24/18 06:30 Alkaline Phosphatase 181 U/L (38-126) H 05/24/18 06:30 Lactate Dehydrogenase 535 U/L (333-699) 05/19/18 06:00 Total Creatine Kinase 100 U/L (35-230) 05/19/18 06:00 Troponin I < 0.01 ng/mL 05/20/18 08:30 Total Protein 8.2 g/dL (5.8-8.3) 05/24/18 06:30 Albumin 4.3 g/dL (3.0-4.8) 05/24/18 06:30 Globulin 3.9 gm/dL 05/24/18 06:30 Albumin/Globulin Ratio 1.1 (1.1-1.8) 05/24/18 06:30 Triglycerides 231 mg/dL (35-160) H 05/18/18 15:37 Cholesterol 263 mg/dL (130-200) H 05/18/18 15:37 LDL Cholesterol Direct 204 mg/dL (0-129) H 05/18/18 15:37 HDL Cholesterol 27 mg/dL (29-60) L 05/18/18 15:37 Lipase 320 U/L (23-300) H 05/23/18 06:30 Vitamin B12 400 pg/mL (239-931) 05/18/18 19:42 25-OH Vitamin D Total < 12.8 NG/ML (30.0-100.0) L 05/21/18 09:30 Folate > 20.0 ng/mL 05/18/18 19:42 Urine Color Yellow (YELLOW) 05/18/18 15:07 Urine Appearance Cloudy (CLEAR) 05/18/18 15:07 Urine pH 6.5 (4.7-8.0) 05/18/18 15:07 Ur Specific [place] 1.020 (1.005-1.035) 05/18/18 15:07 Urine Protein 100 mg/dL (<30 mg/dL) H 05/18/18 15:07 Urine Glucose (UA) Negative mg/dL (NEGATIVE) 05/18/18 15:07 Urine Ketones Trace mg/dL (NEGATIVE) H 05/18/18 15:07 Urine Blood Large (NEGATIVE) H 05/18/18 15:07 Urine Nitrate Negative (NEGATIVE) 05/18/18 15:07 Urine Bilirubin Small (NEGATIVE) H 05/18/18 15:07 Urine Urobilinogen 1.0 E.U./dL (<1 E.U./dL) H 05/18/18 15:07 Ur Leukocyte Esterase Trace Naomi/uL (NEGATIVE) H 05/18/18 15:07 Urine RBC Tntc /hpf (0-2) 05/18/18 15:07 Urine WBC 10 - 15 /hpf (0-6) 05/18/18 15:07 Ur Epithelial Cells 10 - 12 /hpf (0-5) 05/18/18 15:07 Urine Bacteria Mod (NEG) 05/18/18 15:07 Urine HCG, Qual Negative (NEGATIVE) 05/18/18 15:07 Urine Opiates Screen Negative (NEGATIVE) 05/18/18 17:57 Urine Methadone Screen Negative (NEGATIVE) 05/18/18 17:57 Ur Barbiturates Screen Negative (NEGATIVE) 05/18/18 17:57 Ur Phencyclidine Scrn Negative (NEGATIVE) 05/18/18 17:57 Ur Amphetamines Screen Negative (NEGATIVE) 05/18/18 17:57 U Benzodiazepines Scrn Positive (NEGATIVE) H 05/18/18 17:57 U Oth Cocaine Metabols Negative (NEGATIVE) 05/18/18 17:57 U Cannabinoids Screen Negative (NEGATIVE) 05/18/18 17:57 Alcohol, Quantitative < 10 mg/dL (0-10) 05/18/18 15:37 LUIS ANGEL Nuclear Membr Pat Negative (Negative) 05/21/18 09:30 Scl-70 Antibody <1.0 AI (<1.0) 05/21/18 09:30 Scl-70 Interpretation Negative (Negative) 05/21/18 09:30 Double Strand DNA Ab <1 IU/mL 05/21/18 09:30 Complement C3 164.0 mg/dL (88.0-165.0) 05/21/18 09:30 Complement C4 44.5 mg/dL (14.0-44.0) H 05/21/18 09:30 Hepatitis A IgM Ab Negative (NEGATIVE) 05/18/18 19:42 Hep Bs Antigen Negative (NEGATIVE) 05/18/18 19:42 Hep B Core IgM Ab Negative (NEGATIVE) 05/18/18 19:42 Hepatitis C Antibody Negative (NEGATIVE) 05/18/18 19:42 Attending/Attestation - Attestation I have personally seen and examined this patient.: Yes I have fully participated in the care of the patient.: Yes I have reviewed all pertinent clinical information, including history, physical exam and plan: Yes Notes (Text): 05/25/18 08:52 Medical record note made by the resident after discussion with my direction and input after the patient was personally seen and examined by me. I have reviewed the chart and agree that the record accurately reflects by personal performance of the history, physical exam, data review, and medical decision-making, in the course for the patient. I have also personally directed the plan of care. 33 year old female with past medical history of alcohol abuse, anemia and pancreatitis presented with complaint of abdominal pain secondary to acute pancreatitis and elevated LFT. Hepatitis panel is negative.There is no evidence of gall stone. Patient abdominal pain is improved,she is tolerating soft diet with out any issue. She will be dischaarged home and will follow up with GI and PCP. She will need repeat LFT in one week. Issue of ongoing alcohol abuse was discussed in detail with the patient. Management plan was discussed in detail with patient. Education was provided.
[2018-05-24 06:54] LABS: BASO # 0.04 K/mm3 (0.0-2.0); BASO % 0.3 % (0.0-3.0); EOS # 0.2 (0.0-0.7); EOS % 1.8 % (1.5-5.0); GRAN # 9.68 (1.4-6.5); GRAN % 77.5 % (50.0-68.0); HEMOGLOBIN 10.8 g/dL (12.0-16.0); LYMPH # 1.7 (1.2-3.4); LYMPH % 13.9 % (22.0-35.0); MEAN CELL VOLUME 96.1 fl (80.0-105.0); MEAN CORPUSCULAR HEMOGLOBIN 32.1 pg (25.0-35.0); MEAN CORPUSCULAR HGB CONC 33.4 g/dl (31.0-37.0); MEAN PLATELET VOLUME 9.6 fl (7.0-11.0); MONO # 0.8 (0.1-0.6); MONO % 6.5 % (1.0-6.0); RBC 3.36 10^6/uL (3.5-6.1); RED CELL DISTRIBUTION WIDTH 14.7 % (11.5-14.5); WHITE BLOOD COUNT 12.5 10^3/ul (4.5-11.0)
[2018-05-24 06:58] LABS: ALB/GLOB RATIO 1.1 (1.1-1.8); ALBUMIN 4.3 g/dL (3.0-4.8); ALT/SGPT 115 U/L (7-56); AST/SGOT 265 U/L (14-36); BLOOD UREA NITROGEN 6 mg/dL (7-21); CALCIUM 9.5 mg/dL (8.4-10.5); GFR AFRICAN-AMERICAN > 60; GFR NON-AFRICAN AMERICAN > 60
[2018-05-24 07:36] VITALS: BP 133/84; PULSE 84; TEMP 98; O2SAT 96
--- NOTE | 2018-05-24 09:30 | CP.PCM.PN ---
<Medardo Alex - Last Filed: 05/24/18 09:27> Subjective - Date & Time of Evaluation Date of Evaluation: 05/24/18 Time of Evaluation: 09:30 - Subjective Subjective: PGY-4 GI Fellow Prog Note Pt tolerating soft, low res diet with minimal pain. States had pancake this AM without problems. Eager for possible DC. Denied fevers, chills, N/V 5 point ROS negative other than stated above Objective - Vital Signs/Intake and Output Vital Signs (last 24 hours): Temp Pulse Resp BP Pulse Ox 98 F 84 20 133/84 96 05/24/18 07:35 05/24/18 07:35 05/24/18 07:35 05/24/18 07:35 05/24/18 07:35 Intake and Output: 05/24/18 05/24/18 06:59 18:59 Intake Total 1320 Balance 1320 - Medications Medications: Current Medications Alprazolam (Xanax) 1 mg PO BID PRN; Protocol PRN Reason: Anxiety Last Admin: 05/21/18 09:33 Dose: 1 mg Amlodipine Besylate (Norvasc) 10 mg PO DAILY [facility] Last Admin: 05/23/18 09:49 Dose: 10 mg Chlorthalidone (Hygroton) 25 mg PO DAILY [facility] Last Admin: 05/23/18 09:48 Dose: 25 mg Clonidine HCl (Catapres) 0.1 mg PO Q12 PRN PRN Reason: Other Ergocalciferol (Drisdol 50,000 Intl Units Cap) 1 cap PO Q7D [facility] Last Admin: 05/22/18 09:55 Dose: 1 cap Folic Acid (Folic Acid) 1 mg PO DAILY [facility] Last Admin: 05/23/18 09:48 Dose: 1 mg Hydralazine HCl (Apresoline) 50 mg PO BID [facility] Last Admin: 05/23/18 18:05 Dose: 50 mg Lactated Ringer's (Lactated Ringer's) 1,000 mls @ 100 mls/hr IV .Q10H [facility] Last Admin: 05/24/18 05:20 Dose: 100 mls/hr Lisinopril (Zestril) 40 mg PO DAILY [facility] Last Admin: 05/23/18 09:49 Dose: 40 mg Lorazepam (Ativan) 0.5 mg IVP Q6H PRN; Protocol PRN Reason: Anxiety Last Admin: 05/24/18 08:11 Dose: 0.5 mg Metoprolol Tartrate (Lopressor) 100 mg PO BID [facility] Last Admin: 05/23/18 18:06 Dose: 100 mg Ondansetron HCl (Zofran Inj) 4 mg IVP Q4H PRN PRN Reason: Nausea/Vomiting Last Admin: 05/22/18 10:50 Dose: 4 mg Pantoprazole Sodium (Protonix Ec Tab) 40 mg PO 0600 [facility] Last Admin: 05/24/18 05:20 Dose: 40 mg Simethicone (Mylicon Chew Tab) 80 mg PO PCHS PRN PRN Reason: GI distress Last Admin: 05/22/18 16:10 Dose: 80 mg Sucralfate (Carafate Oral Susp) 1 gm PO 0630,1130,1630 [facility] Last Admin: 05/24/18 05:29 Dose: 1 gm Tramadol HCl (Ultram) 50 mg PO TID PRN PRN Reason: Pain, severe (8-10) Last Admin: 05/23/18 18:07 Dose: 50 mg Zolpidem Tartrate (Ambien) 5 mg PO HS PRN; Protocol PRN Reason: Insomnia Last Admin: 05/23/18 23:45 Dose: 5 mg - Labs Labs: 05/24/18 06:30 05/24/18 06:30 - Constitutional Appears: Well, Non-toxic, No Acute Distress - Head Exam Head Exam: ATRAUMATIC, NORMOCEPHALIC - Eye Exam Eye Exam: EOMI. absent: Conjunctival injection - Respiratory Exam Respiratory Exam: absent: Accessory Muscle Use, Prolonged Expiratory Phase - GI/Abdominal Exam GI & Abdominal Exam: Soft, Tenderness (minimally ttp in epigastrum without guarding), Normal Bowel Sounds. absent: Distended, Firm, Rigid Assessment and Plan - Assessment and Plan (Free Text) Assessment: Acute Pancreatitis: 3/3 criteria with typical symptoms, lipase >3x ULN and radiographic imaging. Trigger likely related to EtOH as recent consumption with onset of symptoms. Though pt denied large consumption, some patients, especially females, can be sensitive to EtOH that could produced pancreatitis and hepatitis. Furthermore, patient can always be under reporting consumption habits (she reported drinking just prior to admission to medicine team, but told this author that she drank 3 weeks ago and none since when her mother was present). TGs not significantly elevate to be TG-induced. Symptoms slowly improving. Acute Hepatitis: Overall improved. Likely EtOH induced given pattern AST/ALT and as well as correlating radiographic studies and concomitant pancreatitis. Viral Hepatitis ruled out. Plan: Low residue and soft diet, ADAT Counseled patient on complete EtOH cessation F/u IgG4 Cont PPI, Carafate Pt to abstain from EtOH at least 3 months and then f/u as outpatient for possible liver biopsy to further workup Depending on f/u labs, may need further w/u for autoimmune hep, PSC, etc. Pt d/w Dr. Renee <James Renee V - Last Filed: 05/24/18 23:50> Objective - Vital Signs/Intake and Output Vital Signs (last 24 hours): Temp Pulse Resp BP Pulse Ox 98 F 84 20 133/84 96 05/24/18 07:35 05/24/18 09:58 05/24/18 07:35 05/24/18 09:58 05/24/18 07:35 Intake and Output: 05/24/18 05/25/18 18:59 06:59 Intake Total 925 Balance 925 - Labs Labs: 05/24/18 06:30 05/24/18 06:30 Attending/Attestation - Attestation I have personally seen and examined this patient.: Yes I have fully participated in the care of the patient.: Yes I have reviewed all pertinent clinical information, including history, physical exam and plan: Yes Notes (Text): 05/24/18 23:49 p
[2018-05-24] MEDS: Potassium Chloride 40 mEq/30 ml LIQ UD PO SCH ×2 (12:10→15:00)
--- NOTE | 2018-05-24 12:37 | CP.PCM.PN ---
Subjective - Date & Time of Evaluation Date of Evaluation: 05/24/18 Time of Evaluation: 12:37 - Subjective Subjective: Nephrology Consultation Note: Assessment: Stable uncontrolled severe HTN likely trigger as pain and alcohol related acute pancreatitis hypertension (3 years), obesity, anxiety and work related stress sedentary lifestyle anemia abnormal LFT microscopic hematuria ? due to menstural periods Plan Hypertension control with meds as ordered. can d/c home with tribenzor 40/10/25 mg 1 tab daily, lopressor 100 bid and hydralazine 50 bid. stop all other bp meds. called pharmacy to verify tribenzor coverage, prescription left with housestaff. pt was educated about complications of HTN including but not limited to CV disease, kidney disease, PVD, stroke she was educated about need for lifestyle modifications, weight loss, exercise and diet control pt was educated to abstain from alcohol completely she was also advised to post-pone plans for until BP better controlled. also cautioned about toxicity of BP meds. p says she doesn't has any plan for soon can d/c IVF since she is on diet started weekly vit D sec HTN work up with renin/donald/metanephrines, SCL-70 ab and renal artery doppler also check for LUIS ANGEL/DNA/c4/c3, Vit D level urine pro/cr Dose meds/antibiotics for normal GFR. Glycemic control, pain control Further work up/management as per primary team pt stable for d/c from renal perspective when planned Thanks for allowing me to participate in care of your patient. Will follow patient with you. Please call if any Qs Dr Alexandro Wing Office: [phone] Chief Complaint; abdomen pain HPI: Pt is a 33 F with hx of hypertension (3 years), obesity, anxiety and work related stress presented with complaints of abdomen pain and found to have alcohol related pancreatitis. renal consult for HTN management Denies OTC/herbal meds or NSAIDs. denies smoking/drugs/tobacco/licorice/ decongestants admits to drinking alcohol but socially although frequency and quantity can vary doesn't exercise. check BP at work often 130-140s admits to missing BP meds dosage due to increased frequency she reported hospital visit 3-4 months ago due to elevated BP reports family hx of HTN father side ROS: Cardiovascular: No chest pain now Pulmonary: No shortness of breath Gastrointestinal: improved abdominal pain but more with eating no nausea/ vomiting. Genitourinary: No pain while urinating. Denies blood in urine. All other negative except as mentioned in HPI Physical Examination: General Appearance: Comfortable, in no acute respiratory distress, co-operative . obese Vitals reviewed and noted as below Head; Atraumatic, normocephalic ENT: no ulcers no thrush. Tongue is midline. Oropharynx: no rash or ulcers. EYES: Pupils are equal, round and reactive to light accommodation. Eye muscles and extraocular movement intact. Sclera is anicteric. Neck; supple no lymphadenopathy, no thyromegaly or bruit Lungs: Normal respiratory rate/effort. Breath sounds bilateral equal and clear Heart: Normal rate. s1s2 normal. No rub or gallop. Extremities: no edema. No varicose veins Neurological: Patient is alert, awake and oriented to person, place and time. No focal deficit. Strength bilateral appropriate and equal Skin: Warm and dry. Normal turgor. No rash. Palpitation: Normal elasticity for age Abdomen: Abdomen is soft. Bowel sounds +. There is no abdominal tenderness, no guarding/rigidity no organomegaly Psych: normal insight and normal affect/mood MSK: no joint tenderness or swelling. Digits and nails normal, no deformity : kidney or bladder not palpable Labs/imaging reviewed. Past medical history, past surgical history, family history, social history, allergy reviewed and noted as below Family hx: no hx of CKD. Rest non-contributory work up: lipase 5814 hepatitis neg TSAT 67% Ferritin 73 Renal imaging: unremarkable UA 100 protein and blood ++ Objective - Vital Signs/Intake and Output Vital Signs (last 24 hours): Temp Pulse Resp BP Pulse Ox 98 F 84 20 133/84 96 05/24/18 07:35 05/24/18 09:58 05/24/18 07:35 05/24/18 09:58 05/24/18 07:35 Intake and Output: 05/24/18 05/24/18 06:59 18:59 Intake Total 1320 Balance 1320 - Medications Medications: Current Medications Alprazolam (Xanax) 1 mg PO BID PRN; Protocol PRN Reason: Anxiety Last Admin: 05/21/18 09:33 Dose: 1 mg Amlodipine Besylate (Norvasc) 10 mg PO DAILY [facility] Last Admin: 05/24/18 09:57 Dose: 10 mg Chlorthalidone (Hygroton) 25 mg PO DAILY [facility] Last Admin: 05/24/18 09:58 Dose: 25 mg Clonidine HCl (Catapres) 0.1 mg PO Q12 PRN PRN Reason: Other Ergocalciferol (Drisdol 50,000 Intl Units Cap) 1 cap PO Q7D [facility] Last Admin: 05/22/18 09:55 Dose: 1 cap Folic Acid (Folic Acid) 1 mg PO DAILY [facility] Last Admin: 05/24/18 09:58 Dose: 1 mg Hydralazine HCl (Apresoline) 50 mg PO BID [facility] Last Admin: 05/24/18 09:58 Dose: 50 mg Lactated Ringer's (Lactated Ringer's) 1,000 mls @ 100 mls/hr IV .Q10H [facility] Last Admin: 05/24/18 05:20 Dose: 100 mls/hr Lisinopril (Zestril) 40 mg PO DAILY [facility] Last Admin: 05/24/18 10:02 Dose: 40 mg Lorazepam (Ativan) 0.5 mg IVP Q6H PRN; Protocol PRN Reason: Anxiety Last Admin: 05/24/18 08:11 Dose: 0.5 mg Metoprolol Tartrate (Lopressor) 100 mg PO BID [facility] Last Admin: 05/24/18 09:57 Dose: 100 mg Ondansetron HCl (Zofran Inj) 4 mg IVP Q4H PRN PRN Reason: Nausea/Vomiting Last Admin: 05/22/18 10:50 Dose: 4 mg Pantoprazole Sodium (Protonix Ec Tab) 40 mg PO 0600 [facility] Last Admin: 05/24/18 05:20 Dose: 40 mg Potassium Chloride (Potassium Chloride Oral Soln) 40 meq PO Q3H [facility] Stop: 05/24/18 16:46 Last Admin: 05/24/18 12:10 Dose: 40 meq Simethicone (Mylicon Chew Tab) 80 mg PO PCHS PRN PRN Reason: GI distress Last Admin: 05/22/18 16:10 Dose: 80 mg Sucralfate (Carafate Oral Susp) 1 gm PO 0630,1130,1630 [facility] Last Admin: 05/24/18 12:10 Dose: 1 gm Tramadol HCl (Ultram) 50 mg PO TID PRN PRN Reason: Pain, severe (8-10) Last Admin: 05/24/18 12:15 Dose: 50 mg Zolpidem Tartrate (Ambien) 5 mg PO HS PRN; Protocol PRN Reason: Insomnia Last Admin: 05/23/18 23:45 Dose: 5 mg - Labs Labs: 05/24/18 06:30 05/24/18 06:30
[2018-05-25 13:40] LABS: ALDO/PRA RATIO 14.3 Ratio (0.9-28.9)
== END 2018-05-24 16:38 | disposition home or self-care (01) | DRG 439 ==
LOC: ED 14:26 → ERH 17:51 → 3RNO 19:04
PROVIDERS: ADMIT Internal Medicine; ATTEND Internal Medicine
DX: K85.20 Alcohol induced acute pancreatitis without necrosis or infection (principal); K56.609 Unspecified intestinal obstruction, unspecified as to partial versus complete obstruction; B17.9 Acute viral hepatitis, unspecified; K76.0 Fatty (change of) liver, not elsewhere classified; D64.9 Anemia, unspecified; F41.0 Panic disorder [episodic paroxysmal anxiety]; F41.1 Generalized anxiety disorder; I10 Essential (primary) hypertension; N83.209 Unspecified ovarian cyst, unspecified side; N92.0 Excessive and frequent menstruation with regular cycle; Z82.49 Family history of ischemic heart disease and other diseases of the circulatory system; Z87.891 Personal history of nicotine dependence; E66.9 Obesity, unspecified; Z68.32 Body mass index [BMI] 32.0-32.9, adult